=== PATIENT | female | born 1960 | race Caucasian/White ===

== ENCOUNTER 2022-12-18 21:34 | Emergency (ER) | payer BC, SELFPAY ==
[2022-12-18 21:44] VITALS: BP 128/78; PULSE 66; RESP 18; TEMP 36.2; O2SAT 97
[2022-12-18 23:20] VITALS: BP 120/68; PULSE 58; RESP 16; O2SAT 97
[2022-12-18 23:40] VITALS: O2SAT 96
--- NOTE | 2022-12-18 23:40 | CRLHL7_ITS ---
For Patients: As a result of the Cures Act, medical imaging exams and procedure reports are released immediately into your electronic medical record. You may view this report before your referring provider. If you have questions, please contact your health care provider. INDICATION: Left-sided low chest pain TECHNIQUE: Chest radiograph 1 view COMPARISON: None FINDINGS: Mediastinum: The mediastinum is normal in appearance. The heart silhouette is normal in size and morphology. Lung: Both lungs are unremarkable in appearance. Both apices are partially excluded. No sign of pleural effusion seen. No pneumothorax is identified. Bone and Soft tissue: Unremarkable for age. IMPRESSION: 1. No acute cardiopulmonary disease is seen. Dictated by: Luis Triplett MD @ 12/19/2022 00:15:08 (Electronically Signed)
[2022-12-18 23:52] LABS: Basophils Absolute Auto 0.05 K/uL (0.00-0.30); Basophils Percent Auto 0.6 % (0.0-3.0); Eosinophils Percent Auto 2.5 % (0.0-7.0); Hematocrit 41.8 % (33.0-51.0); Hemoglobin* 13.7 gm/dL (12.0-16.0); Immature Granulocytes Abs Auto 0.01 K/uL (0.00-0.30); Immature Granulocytes Pct Auto 0.1 %; Lymphocytes Absolute Auto 3.44 K/uL (0.90-2.90); Lymphocytes Percent Auto 42.6 % (20-44); Mean Corpuscular HGB Conc 33 gm/dL (32-36); Mean Corpuscular Hemoglobin 32 pg (26-34); Mean Corpuscular Volume 97 fL (80-100); Monocytes Percent Auto 7.9 % (0.0-11.0); Neutrophils Absolute Auto 3.74 K/uL (1.7-7.0); Neutrophils Percent Auto 46.3 % (42.0-72.0); Platelet Count* 279 K/uL (140-440); RDW Coefficient of Variation % 13.1 % (11.5-15.5); Red Blood Count 4.33 m/uL (4.00-5.20); White Blood Count* 8.08 K/uL (4.50-11.00)
[2022-12-18 23:53] LABS: Appearance Urine Slightly Cloudy (Clear); Bilirubin Urine Negative (Negative); Blood Urine Negative (Negative); Color Urine Yellow (Yellow); Glucose Urine Negative (Negative); Ketones Urine Negative (Negative); Leukocyte Esterase Urine Negative (Negative); Nitrite Urine Negative (Negative); Protein Urine Negative (Negative); Specific Gravity Urine 1.015 (1.000-1.030); Urobilinogen Urine 0.2 (0.2-1.0); pH Urine 8.5 (5.0-8.5)
[2022-12-19 00:07] LABS: Albumin* 3.6 g/dL (3.3-5.0)
[2022-12-19 00:08] LABS: Chloride* 110 mmol/L (96-114); Potassium* 3.3 mmol/L (3.6-5.1); Sodium* 141 mmol/L (135-149)
[2022-12-19 00:10] LABS: Alanine Aminotransferase* 13 U/L (4-35); Alkaline Phosphatase* 77 U/L (40-150); Aspartate Amino Transferase* 19 U/L (12-35); Bilirubin Direct* 0.2 mg/dL (0.0-0.5); Bilirubin Total* 0.4 mg/dL (0.1-1.5)
[2022-12-19 00:11] LABS: Creatinine* 0.6 mg/dL (0.5-1.5); Estimated Glomerular Filt Rate 100 ml/min
[2022-12-19 00:12] LABS: Blood Urea Nitrogen* 10 mg/dL (7-30); Calcium* 8.5 mg/dL (8.4-10.6); Carbon Dioxide* 31 mmol/L (20-32); Glucose* 85 mg/dL (60-115)
--- NOTE | 2022-12-19 00:12 | ED_ITS ---
HPI - General Adult General Chief complaint: Abdominal Pain Stated complaint: Stabbing pain-upper left chest/extends to left arm Time Seen by Provider: 12/18/22 23:24 History of Present Illness HPI narrative: 62-year-old woman presenting to the emergency department with significant other (?) with complaint of sudden stabbing pain about 2 hours prior to this interview in the left upper abdomen or under her breast. This occurred at rest. Worse with movement and exhaling. This pain seemed to radiate up into her ear on the left and then started to feel some discomfort down her left arm. She felt that this was unusual thinking that if it had been cardiac she would feel jaw pain. Speaking with the person who accompanies her, developed concern of potential pneumothorax. Apparently his son had spontaneous pneumothorax though in the setting of cystic fibrosis. Melanie notes long history of nonspecific bowel pains. She does have hyoscyamine available and tried that and it did not work; apparently usually effective. This pain however in location and type of pain is familiar just not this intense. She notes a history of a ?hole in my stomach? having been extensively evaluated and sees [place] [facility]. She was in usual state of health prior to this. No cough or cold symptoms. No fever. No leg pain or swelling noted. No symptoms currently and arms or legs. No focal weakness. No sense of irregular heartbeat/palpitations. She does smoke. Related Data Home Medications Medication Instructions Recorded Confirmed diphenhydramine HCl 12.5 mg/5 mL 12.5 mg PO Q4-6H PRN 12/18/22 12/18/22 prefilled spoon Previous Rx's Medication Instructions Recorded hyoscyamine sulfate 0.125 mg 0.125 mg PO Q8-12H PRN dyspepsia 12/19/22 tablet (Levsin) #90 tabs Allergies Allergy/AdvReac Type Severity Reaction Status Date / Time pseudoephedrine Allergy Intermediate Verified 10/04/22 14:00 nitrofurantoin Allergy Unknown Verified 10/04/22 14:00 [From Macrodantin] Aspirin Allergy Unknown Uncoded 10/04/22 14:00 nitrates Allergy Unknown Uncoded 10/04/22 14:00 peanut oil Allergy Unknown Uncoded 10/04/22 14:00 Shell Fish Allergy Unknown Uncoded 10/04/22 14:00 Sulfate Allergy Unknown Uncoded 10/04/22 14:00 Review of Systems Status of ROS: Reports: 10 or more systems reviewed and unremarkable except as noted in History and below [facility] Social History Smoking Status: Current every day smoker What tobacco products do you use: cigarettes Smoking packs per day: 0.5 Smoking cigarettes per day: 10.0 Do you use any of these nicotine containing products: None Second hand tobacco smoke exposure: No How often do you have a drink containing alcohol: never How often do you have six or more drinks on one occasion: Never AUDIT-C Alcohol total score: 0 Non-prescribed substance use: denies use service: No Exam Narrative: Exam Narrative: Pleasant. Energetic. Talkative Mildly anxious. Hands often palpating at the left low chest/left upper abdomen. Is speaking fluidly easily. Neck is supple without LA. There is no supraclavicular crepitus. She is sore to palpation the parascapular and scapular musculature on the left. Is well perfused with equal pulses in upper extremities. No edema in lower extremities also well perfused. Lungs appear to be clear. Heart with a regular rate and rhythm. No murmur rub or gallop identified. Abdomen is soft and nontender. Certainly no peritoneal signs. Evaluation further of the chest wall elicits mildly reproducible pain to palpation in the left low mid to lateral clavicular area rib. No rash/blisters. I did palpate deep up into the left upper quadrant under the ribs and not noticeably exacerbate pain. Const: Vital Signs, click to edit/add: Vital Signs - 24 hr 12/18/22 21:44 12/18/22 23:20 12/18/22 23:40 Temperature 97.1 F L Pulse Rate [Pulse Oximeter] 66 58 L Respiratory Rate 18 16 Blood Pressure [Le ft Upper Arm] 128/78 120/68 Pulse Oximetry 97 97 96 Oxygen Delivery Me thod Room Air Room Air Documenting provider has reviewed patient's vital signs: yes Course Vital Signs Vital signs: Initial Vital Signs Temperature 97.1 F L 12/18/22 21:44 Temperature Source Temporal Artery Scan 12/18/22 21:44 Pulse Rate 66 12/18/22 21:44 Pulse Rhythm 12/18/22 21:44 Respiratory Rate 18 12/18/22 21:44 Blood Pressure 128/78 12/18/22 21:44 Blood Pressure Mean 94 12/18/22 21:44 Pulse Oximetry 97 12/18/22 21:44 Oxygen Delivery Method 12/18/22 21:44 Vital Signs Temperature 97.1 F L 12/18/22 21:44 Pulse Rate 66 12/18/22 21:44 Respiratory Rate 18 12/18/22 21:44 Blood Pressure 128/78 12/18/22 21:44 Pulse Oximetry 97 12/18/22 21:44 Oxygen Delivery Method 12/18/22 21:44 Temperature 97.1 F L 12/18/22 21:44 Pulse Rate 58 L 12/18/22 23:20 Respiratory Rate 16 12/18/22 23:20 Blood Pressure 120/68 12/18/22 23:20 Pulse Oximetry 96 12/18/22 23:40 Oxygen Delivery Method 12/18/22 23:20 Medical Decision Making MDM Narrative Medical decision making narrative: I suppose differential could include mediastinal air or pneumothorax otherwise. Ischemic cardiovascular etiology as well as possibility. If this whole that she is describing as a hiatal hernia of sorts I suppose this could contribute. Maybe GERD. Chest wall pain as somewhat reproducible. Costochondritis, pericarditis, myocarditis also in differential. Pulmonary embolus. Soreness in left scapular area which could contribute to some left arm symptoms. Constipa tion with discomfort in splenic flexure? Monitored on monitoring engineer. Initiating laboratory evaluation. EKG as below. Chest x-ray reviewed by me looks to be unremarkable without pneumothorax no i nfiltrative process. Normal cardiac silhouette. After exam and on reassessment apparently essentially fully resolved. She thinks this was manipulated in the area and got better. Was requesting departure sensitive to friends work schedule, prior to laboratory resulting. Labs were WNL Lab Data Lab results reviewed: Yes I reviewed the patient's lab results Labs: Lab Results 12/18/22 12/18/22 12/18/22 Range/Units 23:12 23:20 23:20 WBC 8.08 (4.50-11.00) K/uL RBC 4.33 (4.00-5.20) m/uL Hgb 13.7 (12.0-16.0) gm/dL Hct 41.8 (33.0-51.0) % MCV 97 (80-100) fL MCH 32 (26-34) pg MCHC 33 (32-36) gm/dL RDW Coeff of Chloe 13.1 (11.5-15.5) % Plt Count 279 (140-440) K/uL Neut % (Auto) 46.3 (42.0-72.0) % Lymph % (Auto) 42.6 (20-44) % [place] % (Auto) 7.9 (0.0-11.0) % Eos % (Auto) 2.5 (0.0-7.0) % Baso % (Auto) 0.6 (0.0-3.0) % Neut # (Auto) 3.74 (1.7-7.0) K/uL Lymph # (Auto) 3.44 H (0.90-2.90) K/uL [place] # (Auto) 0.60 (0.00-0.90) K/UL Eos # (Auto) 0.20 (0.00-0.50) K/uL Baso # (Auto) 0.05 (0.00-0.30) K/uL D-Dimer Quant (PE/DVT) (0.00-0.50) ug/ml Sodium 141 (135-149) mmol/L Potassium 3.3 L (3.6-5.1) mmol/L Chloride 110 (96-114) mmol/L Carbon Dioxide 31 (20-32) mmol/L BUN 10 (7-30) mg/dL Creatinine 0.6 (0.5-1.5) mg/dL Estimated GFR 100 ml/min Glucose 85 (60-115) mg/dL Calcium 8.5 (8.4-10.6) mg/dL Total Bilirubin (0.1-1.5) mg/dL Direct Bilirubin (0.0-0.5) mg/dL AST (12-35) U/L ALT (4-35) U/L Alkaline Phosphatase (40-150) U/L Troponin I (0.01-0.04) ng/mL C-Reactive Protein < 0.5 L (0.5-1.0) mg/dL NT-Pro-B Natriuret Pep pg/mL Total Protein (6.0-8.3) g/dL Albumin (3.3-5.0) g/dL Urine Color Yellow (Yellow) Urine Appearance Slightly Cloudy A (Clear) Urine pH 8.5 (5.0-8.5) Ur Specific [place] 1.015 (1.000-1.030) Urine Protein Negative (Negative) Urine Glucose (UA) Negative (Negative) Urine Ketones Negative (Negative) Urine Blood Negative (Negative) Urine Nitrite Negative (Negative) Urine Bilirubin Negative (Negative) Urine Urobilinogen 0.2 (0.2-1.0) Ur Leukocyte Esterase Negative (Negative) Urine RBC 0-2 (0-2) Urine WBC 0-2 (0-5) Ur Squamous Epith Cells Few (None-Few) Amorphous Sediment Few A (None) Urine Bacteria Moderate A (None) POC Troponin I (0.01-0.04) ng/ml 12/18/22 12/18/22 12/18/22 Range/Units 23:20 23:20 23:41 WBC (4.50-11.00) K/uL RBC (4.00-5.20) m/uL Hgb (12.0-16.0) gm/dL Hct (33.0-51.0) % MCV (80-100) fL MCH (26-34) pg MCHC (32-36) gm/dL RDW Coeff of Chloe (11.5-15.5) % Plt Count (140-440) K/uL Neut % (Auto) (42.0-72.0) % Lymph % (Auto) (20-44) % [place] % (Auto) (0.0-11.0) % Eos % (Auto) (0.0-7.0) % Baso % (Auto) (0.0-3.0) % Neut # (Auto) (1.7-7.0) K/uL Lymph # (Auto) (0.90-2.90) K/uL [place] # (Auto) (0.00-0.90) K/UL Eos # (Auto) (0.00-0.50) K/uL Baso # (Auto) (0.00-0.30) K/uL D-Dimer Quant (PE/DVT) < 0.27 (0.00-0.50) ug/ml Sodium (135-149) mmol/L Potassium (3.6-5.1) mmol/L Chloride (96-114) mmol/L Carbon Dioxide (20-32) mmol/L BUN (7-30) mg/dL Creatinine (0.5-1.5) mg/dL Estimated GFR ml/min Glucose (60-115) mg/dL Calcium (8.4-10.6) mg/dL Total Bilirubin 0.4 (0.1-1.5) mg/dL Direct Bilirubin 0.2 (0.0-0.5) mg/dL AST 19 (12-35) U/L ALT 13 (4-35) U/L Alkaline Phosphatase 77 (40-150) U/L Troponin I < 0.01 L (0.01-0.04) ng/mL C-Reactive Protein (0.5-1.0) mg/dL NT-Pro-B Natriuret Pep 31 pg/mL Total Protein 6.0 (6.0-8.3) g/dL Albumin 3.6 (3.3-5.0) g/dL Urine Color (Yellow) Urine Appearance (Clear) Urine pH (5.0-8.5) Ur Specific [place] (1.000-1.030) Urine Protein (Negative) Urine Glucose (UA) (Negative) Urine Ketones (Negative) Urine Blood (Negative) Urine Nitrite (Negative) Urine Bilirubin (Negative) Urine Urobilinogen (0.2-1.0) Ur Leukocyte Esterase (Negative) Urine RBC (0-2) Urine WBC (0-5) Ur Squamous Epith Cells (None-Few) Amorphous Sediment (None) Urine Bacteria (None) POC Troponin I 0.00 L (0.01-0.04) ng/ml ECG Data Attestation: I personally reviewed and interpreted this ECG as follows: (Normal sinus rhythm at 66) Discharge Plan Discharge Clinical Impression: Chest pain Patient Disposition: Home w/ Parent or Adult Condition: Improved Instructions: Chest Pain (DC) Additional Instructions: Stay well-hydrated. We have not finished the workup here today but I understand you're feeling better and want to leave. I will call you with any concerning labs. Return for marked increase in pain, shortness of breath, new and focal weakness. Prescriptions: No Action diphenhydramine HCl 12.5 mg/5 mL prefilled spoon 12.5 mg PO Q4-6H PRN hyoscyamine sulfate [Levsin] 0.125 mg tablet 0.125 mg PO Q8-12H PRN (Reason: dyspepsia) Qty: 90 3RF Follow Up/Referrals: Maverick Hanna MD [Primary Care Provider] - Stand Alone Forms: [employer] Info Instructions
[2022-12-19 00:25] LABS: RBC Urine 0-2 (0-2); WBC Urine 0-2 (0-5)
[2022-12-19 00:26] LABS: Amorphous Sediment Urine Few; Bacteria Urine Moderate; Squamous Epithelial Cell Urine Few (None-Few)
[2022-12-19 00:26] LABS: C Reactive Protein* < 0.5 mg/dL (0.5-1.0); NT Pro B Type NatriureticPept* 31 pg/mL; Troponin I* < 0.01 ng/mL (0.01-0.04)
[2022-12-19 00:33] LABS: D Dimer Quantitative* < 0.27 ug/ml (0.00-0.50)
[2022-12-19 01:13] LABS: Slide Review Reflex No
== END 2022-12-19 00:24 | disposition home or self-care (01) ==
PROVIDERS: Emergency Provider Family Medicine; PCP Family Medicine
DX: R07.89 Other chest pain (principal)
CPT/HCPCS: 36415; 71045; 80048; 80076; 81001; 83880; 84484; 85025; 85379; 86140; 87086; 93005; 94761; 99284

== ENCOUNTER 2023-08-30 12:47 | Emergency (ER) | payer BC, SELFPAY ==
[2023-08-30 13:08] VITALS: BP 95/47; PULSE 98; RESP 16; TEMP 36.6; O2SAT 96; BMI 19.7
[2023-08-30 16:19] VITALS: BP 125/67; PULSE 84; RESP 16; TEMP 36.1; O2SAT 98
--- NOTE | 2023-08-30 16:21 | PC.NURSE ---
Pt in waiting room, states Im having issues again, it's deciding to move all over. States pain jumping all over and it doesn't like me, Pt states she is very upset with wait time, reassured VSS, reassessed. Pt anxious, many thoughts and concerns verbalized, unorganized thoughts.
--- NOTE | 2023-08-30 17:09 | PC.NURSE ---
Pt called from Triage waiting room, not here or in hospital parking lot.
== END 2023-08-30 18:18 | disposition left against medical advice (07) ==
LOC: ED 18:09
PROVIDERS: Emergency Provider Emergency Medicine; PCP Family Medicine
DX: Z53.21 Procedure and treatment not carried out due to patient leaving prior to being seen by health care provider (principal)

== ENCOUNTER 2023-09-03 14:39 | Outpatient (CLI) | payer BC, SELFPAY | END 2023-09-03 14:40 | disposition home or self-care (01) | PROVIDERS: PCP Family Medicine; Visit Provider Family Medicine | DX: R63.4 Abnormal weight loss (principal); R20.2 Paresthesia of skin | CPT/HCPCS: 80048; 84443 ==

== ENCOUNTER 2023-09-06 10:42 | Outpatient (CLI) | payer BC, SELFPAY ==
--- NOTE | 2023-09-06 11:00 | CRLHL7_ITS ---
For Patients: As a result of the Cures Act, medical imaging exams and procedure reports are released immediately into your electronic medical record. You may view this report before your referring provider. If you have questions, please contact your health care provider. CLINICAL HISTORY: PARESTHESIA OF SKIN TECHNIQUE: The carotid circulations and the vertebral arteries in the neck were examined with mattson-scale ultrasound, color-flow and Doppler spectral analysis. Degrees of stenosis were determined using SRU 2002 Consensus Panel Criteria. FINDINGS: Sonographic images demonstrate bilateral atherosclerotic plaque formation without suspicious soft tissue mass. There was antegrade blood flow demonstrated within the vertebral arteries and the subclavian arteries demonstrated a normal triphasic waveform. The spectral Doppler tracings of the common carotid, internal and external carotid arteries demonstrate no abnormal turbulence or spectral broadening. There was no significant elevation of peak systolic blood flow which would indicate a hemodynamically-significant stenosis by SRU criteria. The ICA/CCA peak systolic velocity ratio measures 0.8 on the right and 0.7 on the left. IMPRESSION: Less than 50 percent stenosis of the internal carotid arteries bilaterally. Dictated by Dimitris Aldana MD @ 09/07/2023 11:34:40 AM (Electronically Signed)
== END 2023-09-06 10:43 | disposition home or self-care (01) ==
LOC: US 10:46
PROVIDERS: PCP Family Medicine; Visit Provider Family Medicine
DX: R20.2 Paresthesia of skin (principal); I65.23 Occlusion and stenosis of bilateral carotid arteries; Z72.0 Tobacco use
CPT/HCPCS: 93880

== ENCOUNTER 2023-09-13 08:06 | Outpatient (CLI) | payer BC, SELFPAY ==
--- NOTE | 2023-09-13 08:15 | CRLHL7_ITS ---
For Patients: As a result of the Century Cures Act, medical imaging exams and procedure reports are released immediately into your electronic medical record. You may view this report before your referring provider. If you have questions, please contact your health care provider. INDICATION: Paresthesias. TECHNIQUE: Brain MRI without contrast. The following sequences were obtained: Sagittal T1 weighted sequence. DWI and ADC mapping sequences. Axial FLAIR and CHANDRIKA T2 weighted sequences. Susceptibility or GRE sequence. COMPARISON: Head CT from 01/26/2022. FINDINGS: No evidence of acute ischemia. No evidence of acute or chronic intracranial blood products. Patchy FLAIR hyperintensities within the supratentorial white matter and brainstem, typical for chronic microvascular ischemic change. Tiny chronic lacunar infarct within the left basal ganglia. Mild to moderate generalized parenchymal volume loss. No mass effect or herniation. No hydrocephalus or extra-axial collections. The pituitary gland, parasellar structures and optic chiasm are normal. A left cerebellar developmental venous anomaly. All the major intracranial vascular structures demonstrate normal flow-related signal. The orbital contents are normal. No calvarial or skull base marrow replacing process. No obstructive sinus disease. No extracranial soft tissue findings. IMPRESSION: 1. No acute infarction or other acute intracranial pathology. 2. Mild chronic microvascular ischemic changes. Tiny chronic lacunar infarction within the left anterior basal ganglia. 3. Mild to moderate generalized parenchymal volume loss. Dictated by Finesse Bloom MD @ 09/13/2023 12:52:58 PM (Electronically Signed)
== END 2023-09-13 08:07 | disposition home or self-care (01) ==
LOC: MRI 08:06
PROVIDERS: PCP Family Medicine; Visit Provider Family Medicine
DX: R20.2 Paresthesia of skin (principal); I67.82 Cerebral ischemia; R51.9 Headache, unspecified
CPT/HCPCS: 70551

== ENCOUNTER 2023-10-10 08:46 | Outpatient (CLI) | payer BC, SELFPAY | END 2023-10-10 08:47 | disposition home or self-care (01) | LOC: NFLDREF 10-11 09:08 | PROVIDERS: PCP Family Medicine; Referring Provider Family Medicine; Visit Provider Nurse Practitioner Family | DX: R82.90 Unspecified abnormal findings in urine (principal) | CPT/HCPCS: 87086 ==

== ENCOUNTER 2023-10-16 06:29 | Emergency (ER) | payer MEDICARE, BC, SELFPAY ==
[2023-10-16 06:42] VITALS: BP 107/70; PULSE 104; RESP 16; TEMP 38.1; O2SAT 97; BMI 16.6
--- NOTE | 2023-10-16 07:05 | CRLHL7_ITS ---
For Patients: As a result of the Century Cures Act, medical imaging exams and procedure reports are released immediately into your electronic medical record. You may view this report before your referring provider. If you have questions, please contact your health care provider. INDICATION: Headache. Aphasia. COMPARISON: January 26, 2022 TECHNIQUE: CT examination of the head was performed as axial sections without intravenous contrast. Images were obtained from the vertex of the skull through the skull base. Please note that all CT scans at this facility use dose modulation, iterative reconstruction, and/or weight-based dosing when appropriate to reduce radiation dose to as low as reasonably achievable. FINDINGS: The brain shows no sign of mass lesion, mass effect, hemorrhage, or edema. There are involutional changes. There is moderate cortical atrophy and there is moderate white matter disease. There is no hydrocephalus. The visualized portions of the orbits are normal in appearance. The osseous structures are normal in appearance with no sign of abnormality in the skull base or calvarium. IMPRESSION: Involutional changes. No acute-appearing findings. Please note that all CT scans at this facility use dose modulation, iterative reconstruction, and/or weight-based dosing when appropriate to reduce radiation dose to as low as reasonably achievable. Dictated by Benoit Kovacs MD @ 10/16/2023 7:45:28 AM (Electronically Signed)
--- NOTE | 2023-10-16 07:12 | ED.GENADULT ---
HPI - General Adult General Chief complaint: Headache/Migraine Stated complaint: hot/burning up/headache Time Seen by Provider: 10/16/23 06:39 History of Present Illness HPI narrative: This was a very difficult interview. 63-year-old female presents self-referred to the emergency department because of very nonspecific symptoms. She states that last night around 10:00 p.m. she went to bed. She tangentially then starts telling me about a smell of exhaust fumes in her room that caused her to have to sleep on the couch again. I am uncertain of the clinical significance of this but the side track was quite lengthy. Once I was able to redirect her, she states that she started having a hot a zinging sensation in her left adventist, I was unable to clarify how long that lasted but then she had a singing hot sensation across her mid forehead, again unable to quantify how long that lasted and then similar feeling on the right adventist. When I asked for clarification if this was painful or hot, she changes her story that she was hot throughout the body that it came on suddenly but again cannot quantify for me how long it lasted but it did somehow go away because she has another flash of it here in the ED. She does not describe it as a headache but when I asked specifically, she says that it is painful. There were several other side tangents during this description as well. She reports worse aphasia than her baseline, reports that she has had aphasia for a few years since her 2nd COVID shot. She reports hot feelings throughout her body and then subsequently tells me that she is not having any neurological changes. It sounds as though there is no new weakness, no new numbness or tingling. She tells me that she had an MRI recently but cannot recall the date nor what for. I am able to review her primary care provider notes N/C that she did have an MRI for nonspecific symptoms than as well. It did show some microvascular disease but no mass, demyelinating process or tumors. She has been placed on aspirin but does continue to smoke. She is uncertain if she has run a fever at home. She tells me that she is on antibiotics for urinary infection. I ask which antibiotic and she isn't able to quite recall. She cannot remember when it was started. When I clarify if she has been taking it, she states that she still has some antibiotics left and admits that she has missed a few doses. Denies any weakness, sepsis type symptoms. No known exposures to any illness. It sounds as though she has recently traveled to [place] though she cannot pin the dates down for me. When I attempt again to clarify if this is an old or new memory lapse, she tells me that that is ongoing. She arrives unaccompanied today so it is difficult to get a history from anyone with normal mentation. She denies any significant past medical history but it sounds as though she smokes, has a history of asthma and has had a recent extensive workup. Recent UTI. She states that her home meds are notable for what sounds like Keflex for a UTI, recent statin recent aspirin and she takes diphenhydramine for asthma attacks p.r.n.. Denies drug use. ROS is notable for the nonspecific illness sound Ng, hot and headache symptoms as described above. Related Data Home Medications Medication Instructions Recorded Confirmed Ca 600 mg-D3 20 mcg-mag oxide 50 tab PO 09/03/23 10/10/23 pd-Be-lzgkit-manganese-boron tablet (Calcium 600-D3 Plus (mag-zinc)) aspirin 81 mg tablet,delayed 81 mg PO QDAY 10/10/23 10/16/23 release (Adult Aspirin Regimen) diphenhydramine HCl 12.5 mg/5 mL 12.5 mg PO QHS 10/10/23 10/16/23 oral liquid (Benadryl Allergy) hyoscyamine sulfate 0.125 mg tablet 0.125 mg PO DAILY 10/16/23 10/16/23 Previous Rx's Medication Instructions Recorded atorvastatin 40 mg tablet 40 mg PO QHS #30 tabs 09/07/23 nirmatrelvir 300 mg (150 mg See Rx Instructions PO .COMPLEX 10/16/23 x2)-ritonavir 100 mg tablet,dose #30 ea pack (Paxlovid) Allergies Allergy/AdvReac Type Severity Reaction Status Date / Time pseudoephedrine Allergy Intermediate Verified 09/03/23 13:49 nitrofurantoin Allergy Unknown Verified 09/03/23 13:49 [From Macrodantin] aspirin Allergy Verified 10/10/23 09:30 latex Allergy Verified 10/10/23 09:30 Nitrate Analogues Allergy Verified 10/10/23 09:30 peanut Allergy Verified 12/06/23 09:30 perfume Allergy Verified 10/10/23 09:30 shellfish derived Allergy Verified 10/10/23 09:30 Sulfate Allergy Unknown Uncoded 09/03/23 13:49 nuts Allergy Uncoded 10/10/23 09:30 [facility] Surgical History S/P tonsillectomy and adenoidectomy ?Z90.89 - Acquired absence of other organs (ICD-10) S/P appendectomy ?Z90.49 - Acquired absence of other specified parts of digestive tract (ICD-10) Social History Smoking Status: Current every day smoker What tobacco products do you use: cigarettes Smoking packs per day: 0.5 Smoking cigarettes per day: 10.0 Do you use any of these nicotine containing products: None Second hand tobacco smoke exposure: No How often do you have a drink containing alcohol: never How often do you have six or more drinks on one occasion: Never AUDIT-C Alcohol total score: 0 Non-prescribed substance use: denies use service: No Exam Const: Vital Signs, click to edit/add: Vital Signs - 24 hr 10/16/23 06:42 10/16/23 08:30 10/16/23 08:35 Temperature 100.6 F H 103.1 F H Pulse Rate [Pulse Oximeter] 104 H 104 H Respiratory Rate 16 20 Blood Pressure [Ri ght Upper Arm] 107/70 83/54 L 100/62 Pulse Oximetry 97 95 Oxygen Delivery Me thod Room Air Room Air Documenting provider has reviewed patient's vital signs: yes Common normals: alert Other: Appears well nourished, well hydrated, nontoxic. Very difficult interview. Thoughts are very tangental, has some word-finding difficulties. Will go on tangents again when she has difficulty finding a word, attempts to mass with humor but it takes away from my understanding. Does not seem intoxicated or impaired. HENMT: Common normals: normocephalic Head and scalp: normocephalic Face and sinus: normal facial exam Mouth: oral and palatal mucosa normal Other: Poor dentition but no obvious sign of infection. No blood behind the TM Eye: Common normals: PERRL, EOMs intact bilaterally and conjunctivae normal General eye: normal appearance of both eyes Conjunctiva: conjunctiva(e) normal Pupil: PERRL Neck & C-Spine: Common normals: full ROM and no lymphadenopathy Resp: Common normals: normal respiratory effort and no use of accessory muscles Other: Lung sounds are slightly distant but no crackles or wheeze today Cardio: Common normals: regular rhythm, S1 normal heart sound, S2 normal heart sound and no murmurs Rhythm: regular rhythm Heart sounds: S1 normal and S2 normal GI: Common normals: Normal to inspection, nondistended, normoactive bowel sounds present, soft to palpation, non-tender, no hepatosplenomegaly and no masses Palpation: soft and no hepatosplenomegaly Extremity: Common normals: normal capillary refill Neuro: Sensorium/orientation: alert Cranial nerves: CN normal except as noted Speech: other (Does have some mild word-finding difficulty but can still express thoughts) Gait (neuro): normal gait Motor exam: strength 5/5 throughout, no tremor noted and no movement abnormalities noted Psych: Appearance: grossly normal Attitude: engaged Activity/motor behavior: appropriate eye contact Other: Mild memory impairment, insight seems fair as does judgment. Skin: Common normals: no rashes or lesions noted Narrative: No bruising, injury or signs of trauma. General skin exam: no rashes or lesions noted Course Course ED Course: 63-year-old female with no obvious signs of trauma the presents with worsening aphasia over known baseline as well as sensation of headache and hot flashes. Attempts to redirect and get more information about this headache proved to be quite difficult. I do review the previous MRI but have concerns with her smoking history and claims that the headache and aphasia are so much worse than usual that we should do a head CT to look for hemorrhage or stroke. This will be done. My impression though is that she is exhibiting signs of new acute illness like viral syndrome, COVID influenza our something similar. I recommend basic blood work, lactate, CBC, repeat of the recent urinalysis, CRP, comprehensive metabolic panel and a lipase because she is reporting nausea. Will also had an alcohol level and drug screen. Reevaluation(s) Time of Reevaluation #1: 07:57 Reevaluation #1: CT and lab findings relayed to patient. He was very difficult to get her to concentrate enough to make me feel like she adequately understood our conversation. She still showing no signs of significant neurological change or medical compromise due to severe illness. Positive for COVID. I do think that this explains her hot flash and headache symptoms. This was discussed. I recommend that she start Paxlovid. Prescription sent to pharmacy. Alarm symptoms reviewed that would warrant ED presentation. See discharge instructions. Vital Signs Vital signs: Initial Vital Signs Temperature 100.6 F H 10/16/23 06:42 Temperature Source Temporal Artery Scan 10/16/23 06:42 Pulse Rate 104 H 10/16/23 06:42 Respiratory Rate 16 10/16/23 06:42 Blood Pressure 107/70 10/16/23 06:42 Blood Pressure Mean 82 10/16/23 06:42 Blood Pressure Position Sitting 10/16/23 06:42 Pulse Oximetry 97 10/16/23 06:42 Oxygen Delivery Method Room Air 10/16/23 06:42 Vital Signs Temperature 100.6 F H 10/16/23 06:42 Pulse Rate 104 H 10/16/23 06:42 Respiratory Rate 16 10/16/23 06:42 Blood Pressure 107/70 10/16/23 06:42 Pulse Oximetry 97 10/16/23 06:42 Oxygen Delivery Method Room Air 10/16/23 06:42 Temperature 103.1 F H 10/16/23 08:30 Pulse Rate 104 H 10/16/23 08:30 Respiratory Rate 20 10/16/23 08:30 Blood Pressure 100/62 10/16/23 08:35 Pulse Oximetry 95 10/16/23 08:30 Oxygen Delivery Method Room Air 10/16/23 08:30 Medications Administered Medications: Discontinued Medications Generic Name Dose Route Start Last Admin Trade Name Johnny PRN Reason Stop Dose Admin Ibuprofen 600 mg 10/16/23 07:46 10/16/23 08:30 Ibuprofen 200 Mg Tablet PO 10/16/23 07:47 400 mg ONCE ONE Administration Ondansetron HCl 4 mg 10/16/23 07:58 10/16/23 08:00 Ondansetron Odt 4 Mg Tab PO 10/16/23 07:59 4 mg ONCE ONE Administration Medical Decision Making Lab Data Lab results reviewed: Yes I reviewed the patient's lab results Lab results narrative: Labs reassuring. COVID positive. Labs: Lab Results 12/12/23 12/12/23 12/12/23 Range/Units 06:47 07:20 07:50 WBC 6.43 (4.50-11.00) K/uL RBC 4.51 (4.00-5.20) m/uL Hgb 14.1 (12.0-16.0) gm/dL Hct 43.6 (33.0-51.0) % MCV 97 (80-100) fL MCH 31 (26-34) pg MCHC 32 (32-36) gm/dL RDW Coeff of Chloe 13.0 (11.5-15.5) % Plt Count 238 (140-440) K/uL Neut % (Auto) 85.2 H (42.0-72.0) % Lymph % (Auto) 5.3 L (20-44) % [place] % (Auto) 7.5 (0.0-11.0) % Eos % (Auto) 1.1 (0.0-7.0) % Baso % (Auto) 0.9 (0.0-3.0) % Neut # (Auto) 5.50 (1.7-7.0) K/uL Lymph # (Auto) 0.30 L (0.90-2.90) K/uL [place] # (Auto) 0.50 (0.00-0.90) K/UL Eos # (Auto) 0.07 (0.00-0.50) K/uL Baso # (Auto) 0.06 (0.00-0.30) K/uL Abs Immat Gran (auto) 0.00 (0.00-0.30) K/uL Imm/Tot Granulo (auto) 0.0 % Sodium 136 (135-149) mmol/L Potassium 4.0 (3.6-5.1) mmol/L Chloride 105 (96-114) mmol/L Carbon Dioxide 25 (20-32) mmol/L Anion Gap 6 L (7-15) mEq/L BUN 8 (7-30) mg/dL Creatinine 0.5 (0.5-1.5) mg/dL Estimated Creat Clear 38.96 Estimated GFR 104 ml/min Glucose 107 (60-115) mg/dL Lactate 0.8 (0.5-1.9) mmol/L Calcium 9.0 (8.4-10.6) mg/dL Total Bilirubin 0.6 (0.1-1.5) mg/dL AST 31 (12-35) U/L ALT 22 (4-35) U/L Alkaline Phosphatase 83 (40-150) U/L C-Reactive Protein 0.6 (0.5-1.0) mg/dL Total Protein 7.0 (6.0-8.3) g/dL Albumin 4.3 (3.3-5.0) g/dL Lipase 114 (23-300) U/L Urine Color Yellow (Yellow) Urine Appearance Clear (Clear) Urine pH 8.5 (5.0-8.5) Ur Specific [place] 1.020 (1.000-1.030) Urine Protein Negative (Negative) Urine Glucose (UA) Negative (Negative) Urine Ketones Negative (Negative) Urine Blood Trace-intact A (Negative) Urine Nitrite Negative (Negative) Urine Bilirubin Negative (Negative) Urine Urobilinogen 1.0 (0.2-1.0) Ur Leukocyte Esterase Negative (Negative) Urine RBC 2-5 A (0-2) Urine WBC 0-2 (0-5) Ur Squamous Epith Cells None (None-Few) Urine Bacteria None (None) Urine Opiates Screen Negative (Negative) Ur Oxycodone Screen Negative (Negative) Urine Methadone Screen Negative (Negative) Ur Propoxyphene Screen Not Reportable Ur Barbiturates Screen Negative (Negative) U Tricyclic Antidepress Negative (Negative) Ur Phencyclidine Scrn Negative (Negative) Ur Amphetamines Screen Negative (Negative) U Methamphetamines Scrn Negative (Negative) U Benzodiazepines Scrn Negative (Negative) Urine Cocaine Screen Negative (Negative) U Marijuana (THC) Screen Negative (Negative) Ur Drug Screen Comment See Note Ethyl Alcohol < 0.01 L (0.01-0.03) % SARS-CoV-2 (PCR) POSITIVE SARS-CoV-2 A (Negative) Influenza Type A (PCR) Negative PCR FLU A (Negative) Influenza Type B (PCR) Negative PCR FLU B (Negative) RSV (PCR) Negative PCR RSV (Negative) Imaging Data CT scan - head: Attestation: I have reviewed the pertinent imaging results. My impression: Chronic vascular changes, lots of calcifications and also volume loss. No acute findings. Radiologist's impression: IMPRESSION: Involutional changes. No acute-appearing findings. Discharge Plan Discharge Clinical Impression: COVID Patient Disposition: Home, Self-Care Condition: Stable Instructions: How to Recover from COVID-19 at Home (ED) Additional Instructions: As we discussed, your tests are positive for COVID. Thankfully the rest of your labs and your CT look stable for you. As a smoker, you do have a higher risk of complications like pneumonia but you do not currently have any signs of complications, or low oxygen etc.. I do recommend that you start an antiviral medicine called Paxlovid. I have sent a prescription to your pharmacy. Please pick it up this morning and start taking it right away. The medication has side effects of mild nausea and also a metallic taste in the mouth. I would like for you to wear a mask out in public to picker machine operator the prescription but other than that, you should quarantine for at least the next 5 days. You should expect headache, body aches, fever. If you start having severe weakness or shortness of breath, you should come back to the emergency room. Your head CT does show some chronic changes similar to the MRI but no new signs of stroke or head bleed. I do encourage you to quit smoking. You may continue to take your aspirin and other medications as prescribed. It is safe to use Tylenol 1000 mg every 6 hours and or ibuprofen 600 mg every 6 hours as needed for headache and body aches. Activity Level: Activity as Tolerated Discharge Diet: Regular Prescriptions: New Paxlovid 300 mg (150 mg x 2)-100 mg tablets,dose pack See Rx Instructions .ROUTE .COMPLEX Qty: 30 0RF Rx Instructions: take TWO 150 mg tablets of nirmatrelvir with ONE 100 mg tablet of ritonavir twice daily for 5 days No Action Ca-D3-mag mq-ijpf-ifl-randy-bor [Calcium 600-D3 Plus (mag-zinc)] 600 mg calcium- 20 mcg-50 mg tablet PO atorvastatin 40 mg tablet 40 mg PO QHS Qty: 30 5RF aspirin [Adult Aspirin Regimen] 81 mg tablet,delayed release (DR/EC) 81 mg PO QDAY Patient Comments: Per Jacques banuelos diphenhydramine HCl [Benadryl Allergy] 12.5 mg/5 mL liquid 12.5 mg PO QHS hyoscyamine sulfate 0.125 mg tablet 0.125 mg PO DAILY Follow Up/Referrals: Maverick Hanna MD [Primary Care Provider] - Stand Alone [facility]
[2023-10-16 07:26] LABS: Lactate* 0.8 mmol/L (0.5-1.9)
[2023-10-16 07:28] LABS: Basophils Absolute Auto 0.06 K/uL (0.00-0.30); Basophils Percent Auto 0.9 % (0.0-3.0); Eosinophils Absolute Auto 0.07 K/uL (0.00-0.50); Eosinophils Percent Auto 1.1 % (0.0-7.0); Hematocrit 43.6 % (33.0-51.0); Hemoglobin* 14.1 gm/dL (12.0-16.0); Lymphocytes Percent Auto 5.3 % (20-44); Mean Corpuscular HGB Conc 32 gm/dL (32-36); Mean Corpuscular Hemoglobin 31 pg (26-34); Mean Corpuscular Volume 97 fL (80-100); Monocytes Percent Auto 7.5 % (0.0-11.0); Neutrophils Percent Auto 85.2 % (42.0-72.0); Platelet Count* 238 K/uL (140-440); Red Blood Count 4.51 m/uL (4.00-5.20); White Blood Count* 6.43 K/uL (4.50-11.00)
[2023-10-16 07:34] LABS: PCR FLU A Negative PCR FLU A (Negative); PCR FLU B Negative PCR FLU B (Negative); PCR RSV Negative PCR RSV (Negative)
[2023-10-16 07:35] LABS: SARS PCR* POSITIVE SARS-CoV-2 (Negative)
[2023-10-16 07:37] LABS: Slide Review Reflex No
[2023-10-16 07:43] LABS: Albumin* 4.3 g/dL (3.3-5.0); Chloride* 105 mmol/L (96-114)
[2023-10-16 07:44] LABS: Sodium* 136 mmol/L (135-149)
--- NOTE | 2023-10-16 07:45 | ED.NURSE ---
Patient up to restroom ambulatory, instructions provided to collect UA. Patient sometimes answers instructions/questions appropriately, but other times is not finishing sentences or rambles nonsensically. Dr. Burnett consulted, notes this is baseline per PCP notes. Patient notes nausea at this time. Dr. Burnett to order zofran. Patient feels she is unable to take the ibuprofen at this time r/t nausea. She denies pain. Patient notes feeling hot but is putting on her sweater and winter coat. Patient refuses to remove layers and notes, this will help. Call light in reach. Patient provided water on request. Advised to take small sips r/t nausea she is experiencing. Will try to administer ibuprofen in 20-30 minutes when the zofran has had time to take effect. Awaiting UA results at this time. Patient denies further needs currently.
[2023-10-16 07:46] LABS: Creatinine* 0.5 mg/dL (0.5-1.5); Est. Creatinine Clearance* 38.96; Estimated Glomerular Filt Rate 104 ml/min; Ethanol* < 0.01 % (0.01-0.03)
[2023-10-16 07:47] LABS: Alanine Aminotransferase* 22 U/L (4-35); Alkaline Phosphatase* 83 U/L (40-150); Anion Gap 6 mEq/L (7-15); Aspartate Amino Transferase* 31 U/L (12-35); Bilirubin Total* 0.6 mg/dL (0.1-1.5); Blood Urea Nitrogen* 8 mg/dL (7-30); Carbon Dioxide* 25 mmol/L (20-32); Glucose* 107 mg/dL (60-115); Lipase* 114 U/L (23-300)
[2023-10-16 07:49] LABS: C Reactive Protein* 0.6 mg/dL (0.5-1.0)
[2023-10-16] MEDS: ONDANSETRON ODT 4 MG TAB PO (08:00)
[2023-10-16 08:05] LABS: Appearance Urine Clear (Clear); Bilirubin Urine Negative (Negative); Blood Urine Trace-intact (Negative); Color Urine Yellow (Yellow); Glucose Urine Negative (Negative); Ketones Urine Negative (Negative); Leukocyte Esterase Urine Negative (Negative); Nitrite Urine Negative (Negative); Protein Urine Negative (Negative); pH Urine 8.5 (5.0-8.5)
[2023-10-16 08:09] LABS: Amphetamine Screen Urine Negative (Negative); Barbiturate Screen Urine Negative (Negative); Benzodiazepines Screen Urine Negative (Negative); Cannabinoid Screen Urine Negative (Negative); Cocaine Screen Urine Negative (Negative); Methadone Screen Urine Negative (Negative); Methamphetamines Screen Urine Negative (Negative); Opiate Screen Urine Negative (Negative); Oxycodone Screen Urine Negative (Negative); Phencyclidine Screen Urine Negative (Negative); Tricyclic Antidepressant Urine Negative (Negative)
[2023-10-16 08:15] LABS: WBC Urine 0-2 (0-5)
[2023-10-16 08:30] VITALS: BP 83/54; PULSE 104; RESP 20; TEMP 39.5; O2SAT 95
[2023-10-16] MEDS: IBUPROFEN 200 MG TABLET 600 MG PO (08:30)
--- NOTE | 2023-10-16 08:31 | ED.NURSE ---
Patient agreeable to taking 400mg ibuprofen. It took resume writer 10+ minutes to get patient to take ibuprofen. Patient poured water cup in her bag, was attempting to take other medications she had in her bag, reports she doesn't usually take medications. Discussed with patient multiple times that the ibuprofen will help reduce her fever and help with the body aches she's complaining off. Patient is pacing around room, resume writer attempting to take VS. BP sitting in chair is 83 systolic. Freight Air Brake Fitter able to convice patient to sit on cot with legs up, BP 100/62. When the vital sign monitor is beeping patient comments, you can't get rid of those people over there hiding in the [place] while pointing to the vital sign monitor. Dr. Roper now caring for patient and updated on status. Freight Air Brake Fitter questions if patient is safe to discharge home as she reports living at home alone.
[2023-10-16 08:35] VITALS: BP 100/62
--- NOTE | 2023-10-16 08:45 | ED.NURSE ---
Dr. Roper speaking with patient.
--- NOTE | 2023-10-16 08:53 | ED.NURSE ---
Discharge teaching completed. Patient is repeatedly trying to walk out of the room during dc teaching. Difficult to get her to focus on instructions. Spoke with patient about use of paxlovid, using tylenl/ibupofen per explained on the DC instructions for fever and headache/pain. Stay hydrated and try to maintain diet. Discussed monitoring oxygen levels. Patient reports to technical writer and editor continuously that I'm having trouble with names and numbers and that Dr. Hanna is the one to okay all of this. Encouraged patient to pickers material handlers the paxlovid, quarantine for 5 days, and do as discussed above again. She leaves ED ambulatory, technical writer and editor having to help her zip her coat.
== END 2023-10-16 08:53 | disposition home or self-care (01) ==
PROVIDERS: Emergency Provider Family Medicine; PCP Family Medicine
DX: U07.1 COVID-19 (principal)
CPT/HCPCS: 36415; 70450; 80053; 80306; 81003; 81015; 82077; 83605; 83690; 85025; 86140; 87631; 95992; 99284; A9270

== ENCOUNTER 2023-10-18 10:36 | Emergency (ER) | payer BC, SELFPAY ==
[2023-10-18 10:48] VITALS: BP 94/65; PULSE 73; RESP 18; TEMP 36.3; O2SAT 97
--- NOTE | 2023-10-18 12:17 | ED_ITS ---
HPI - General Adult General Date Seen: 10/18/23 Chief complaint: Unspecified Complaint, Adult Stated complaint: Covid+, confusion, headache Time Seen by Provider: 10/18/23 12:03 History of Present Illness HPI narrative: This is a 63-year-old female presenting to the ER today for positive coronavirus as well as headache, confusion. She was seen in the ER [address] Burnett on the car sweeper. Part of her ER note is below: presents self-referred because of very nonspecific symptoms. She states that last night around 10:00 p.m. she went to bed. She tangentially then starts telling me about a smell of exhaust fumes in her room that caused her to have to sleep on the couch again. I am uncertain of the clinical significance of this but the side track was quite lengthy. Once I was able to redirect her, she states that she started having a hot a zinging sensation in her left yarsani, I was unable to clarify how long that lasted but then she had a singing hot sensation across her mid forehead, again unable to quantify how long that lasted and then similar feeling on the right yarsani. When I asked for clarification if this was painful or hot, she changes her story that she was hot throughout the body that it came on suddenly but again cannot quantify for me how long it lasted but it did somehow go away because she has another flash of it here in the ED. She does not describe it as a headache but when I asked specifically, s he says that it is painful. There were several other side tangents during this description as well. She reports worse aphasia than her baseline, reports that she has had aphasia for a few years since her 2nd COVID shot. She reports hot feelings throughout her body and then subsequently tells me that she is not having any neurological changes. It sounds as though there is no new weakness, no new numbness or tingling. She tells me that she had an MRI recently but cannot recall the date nor what for. I am able to review her primary care provider notes N/C that she did have an MRI for nonspecific symptoms than as well. It did show some microvascular disease but no mass, demyelinating process or tumors. She has been placed on aspirin but does continue to smoke. She is uncertain if she has run a fever at home. She tells me that she is on antibiotics for urinary infection. I ask which antibiotic and she isn't able to quite recall. She cannot remember when it was started. When I clarify if she has been taking it, she states that she still has some antibiotics left and admits that she has missed a few doses. Denies any weakness, sepsis type symptoms. No known exposures to any illness. It sounds as though she has recently traveled to [place] though she cannot pin the dates down for me. When I attempt again to clarify if this is an old or new memory lapse, she tells me that that is ongoing. She arrives unaccompanied today so it is difficult to get a history from anyone with normal mentation. She denies any significant past medical history but it sounds as though she sm okes, has a history of asthma and has had a recent extensive workup. Recent UTI. She states that her home meds are notable for what sounds like Keflex for a UTI, recent statin recent aspirin and she takes diphenhydramine for asthma attacks p.r.n.. Denies drug use. ROS is notable for the nonspecific illness sound Ng, hot and headache symptoms as described above. As we discussed, your tests are positive for COVID. Thankfully the rest of your labs and your CT look stable for you. As a smoker, you do have a higher risk of complications like pneumonia but you do not currently have any signs of complications, or low oxygen etc.. I do recommend that you start an antiviral medicine called Paxlovid. I have sent a prescription to your pharmacy. Please pick it up this morning and start taking it right away. The medication has side effects of mild nausea and also a metallic taste in the mouth. I would like for you to wear a mask out in public to warp picker the prescription but other than that, you should quarantine for at least the next 5 days. You should expect headache, body aches, fever. If you start having severe weakness or shortness of breath, you should come back to the emergency room. Your head CT does show some chronic changes similar to the MRI but no new signs of stroke or head bleed. I do encourage you to quit smoking. You may continue to take your aspirin and other medications as prescribed. It is safe to use Tylenol 1000 mg every 6 hours and or ibuprofen 600 mg every 6 hours as needed for headache and body aches. Labs showed white blood cell count 6.4, hemoglobin 14.1, platelet count 231, alcohol negative, LFTs normal, lipase negative, CRP normal at 0.6, venous lactate normal at 0.8. Head CT was negative. Sodium 136, potassium 4.0, chloride 105, bicarb 25, BUN 8, creatinine 0.5, glucose 107, calcium 9.0 She was prescribed Paxlovid. She returns to the ER today because she has an ongoing headache. She has also had ongoing poor appetite, malaise, fatigue. She is primarily concerned about her headache says she just wants some pain medication. She tried to call her clinic to get pain meds but was referred here to the ER instead. She says she does have a long history migraine headaches. She has been using her typical migraine combination of medications (Excedrin and Benadryl) but it has not been helpful for this at a. She does this headache is different than her usual migraine. No other new focal deficits. No blurry vision. She does have cough, sore throat, nasal congestion, body aches. No chest pain or shortness of breath. She says she just wants something stronger for her headache. She does have her onto can give her a ride home. She is happy because she has not had the urge to smoke cigarettes since she got sick on Sunday. Related Data Home Medications Medication Instructions Recorded Confirmed Ca 600 mg-D3 20 mcg-mag oxide 50 tab PO 09/03/23 10/10/23 mr-Cx-djpyio-manganese-boron tablet (Calcium 600-D3 Plus (mag-zinc)) aspirin 81 mg tablet,delayed 81 mg PO QDAY 10/10/23 10/16/23 release (Adult Aspirin Regimen) diphenhydramine HCl 12.5 mg/5 mL 12.5 mg PO QHS 10/10/23 10/16/23 oral liquid (Benadryl Allergy) hyoscyamine sulfate 0.125 mg tablet 0.125 mg PO DAILY 10/16/23 10/16/23 Previous Rx's Medication Instructions Recorded atorvastatin 40 mg tablet 40 mg PO QHS #30 tabs 09/07/23 nirmatrelvir 300 mg (150 mg See Rx Instructions PO .COMPLEX 10/16/23 x2)-ritonavir 100 mg tablet,dose #30 ea pack (Paxlovid) hydrocodone 5 mg-acetaminophen 325 1 tab PO Q6H PRN pain #10 tabs 10/18/23 mg tablet ondansetron 4 mg disintegrating 4 mg PO Q8H PRN nausea and 10/18/23 tablet vomiting #10 tabs Allergies Allergy/AdvReac Type Severity Reaction Status Date / Time pseudoephedrine Allergy Intermediate Verified 09/03/23 13:49 nitrofurantoin Allergy Unknown Verified 09/03/23 13:49 [From Macrodantin] aspirin Allergy Verified 10/10/23 09:30 latex Allergy Verified 10/10/23 09:30 Nitrate Analogues Allergy Verified 10/10/23 09:30 peanut Allergy Verified 10/10/23 09:30 perfume Allergy Verified 10/10/23 09:30 shellfish derived Allergy Verified 10/10/23 09:30 Sulfate Allergy Unknown Uncoded 09/03/23 13:49 nuts Allergy Uncoded 10/10/23 09:30 PFSH PFSH Surgical History S/P tonsillectomy and adenoidectomy ?Z90.89 - Acquired absence of other organs (ICD-10) S/P appendectomy ?Z90.49 - Acquired absence of other specified parts of digestive tract (ICD- 10) Social History Smoking Status: Current every day smoker What tobacco products do you use: cigarettes Smoking packs per day: 0.5 Smoking cigarettes per day: 10.0 Do you use any of these nicotine containing products: None Second hand tobacco smoke exposure: No How often do you have a drink containing alcohol: never AUDIT-C Alcohol total score: 0 Non-prescribed substance use: denies use service: No Exam Narrative: Exam Narrative: Constitutional: Appears well-developed and well-nourished. Alert. Conversant, but tangential historian. Non toxic. HENT: Head: Atraumatic. No depressed skull fracture, Raccoon Eyes, Lua's sign, or hemotympanum. Face normal. TMs normal Nose: Nose normal. Non purulent rhinorrhea bilaterally. Mouth/Throat: Oral mucosa is clear and moist. no trismus. Pharynx normal. Tonsils symmetric. No tonsillar enlargement, erythema, or exudate. Eyes: Conjunctivae normal. EOM normal. Pupils equal, round, and reactive to light. No scleral icterus. Neck: Normal range of motion. Neck supple. No tracheal deviation present. Cardiovascular: Normal rate, regular rhythm. No gallop. No friction rub. No murm ur heard. Symmetric radial artery pulses Pulmonary/Chest: Effort normal. No stridor. No respiratory distress. No wheezes. No rales. No rhonchi . No tenderness. Abdominal: Soft. Bowel sounds normal. No distension. No mass. No tenderness. No rebound. No guarding. Musculoskeletal: RUE: Normal range of motion. No tenderness. No deformity LUE: Normal range of motion. No tenderness. No deformity RLE: Normal range of motion. No edema. No tenderness. No deformity LLE: Normal range of motion. No edema. No tenderness. No deformity Neurological: Alert and oriented to person, place, and time. Normal strength. CN II-VII intact. No sensory deficit. GCS eye subscore is 4. GCS verbal subscore is 5. GCS motor subscore is 6. Normal coordination Skin: Skin is warm and dry. No rash noted. No pallor. Normal capillary refill. Psychiatric: Normal mood. Normal affect. Const: Vital Signs, click to edit/add: Vital Signs - 24 hr 10/18/23 10:48 10/18/23 12:44 Temperature 97.4 F L Pulse Rate [Pulse Oximeter] 73 65 Respiratory Rate 18 16 Blood Pressure [Ri t Upper Arm] 94/65 108/68 Pulse Oximetry 97 97 Oxygen Delivery Me thod Room Air Course Vital Signs Vital signs: Initial Vital Signs Temperature 97.4 F L 10/18/23 10:48 Temperature Source Temporal Artery Scan 10/18/23 10:48 Pulse Rate 73 10/18/23 10:48 Respiratory Rate 18 10/18/23 10:48 Blood Pressure 94/65 10/18/23 10:48 Blood Pressure Mean 74 10/18/23 10:48 Blood Pressure Position Sitting 10/18/23 10:48 Pulse Oximetry 97 10/18/23 10:48 Oxygen Delivery Method Room Air 10/18/23 10:48 Vital Signs Temperature 97.4 F L 10/18/23 10:48 Pulse Rate 73 10/18/23 10:48 Respiratory Rate 18 10/18/23 10:48 Blood Pressure 94/65 10/18/23 10:48 Pulse Oximetry 97 10/18/23 10:48 Oxygen Delivery Method Room Air 10/18/23 10:48 Temperature 97.4 F L 10/18/23 10:48 Pulse Rate 65 10/18/23 12:44 Respiratory Rate 16 10/18/23 12:44 Blood Pressure 108/68 10/18/23 12:44 Pulse Oximetry 97 10/18/23 12:44 Oxygen Delivery Method Room Air 10/18/23 10:48 Medications Administered Medications: Discontinued Medications Generic Name Dose Route Start Last Admin Trade Name Johnny PRN Reason Stop Dose Admin Hydrocodone Bitart/Acetaminophen 1 tab 10/18/23 12:43 10/18/23 12:51 Hydrocodone-Acetamin 5-325 Mg 1 Tab PO 10/18/23 12:44 1 tab ONCE ONE Administration Ondansetron HCl 4 mg 10/18/23 12:43 10/18/23 12:51 Ondansetron Odt 4 Mg Tab PO 10/18/23 12:44 4 mg ONCE ONE Administration Medical Decision Making [facility] Narrative Medical decision making narrative: This patient presents for evaluation of her headache. She has URI symptoms and is COVID positive here in the ER 2 days ago on Sunday. She is already on Paxlovid. Overall her symptoms could be consistent with coronavirus. There is no signs at this point of serious bacterial infection such as OM, RPA, epiglottitis, BOULEVARD GLASSWARE REPLACER, strep pharyngitis, pneumonia, , bacteremia, serious bacterial infection. Given clear lungs, fever curve, no hypoxia and no respiratory distress I do not feel a CXR is indicated at this point as the probability of bacterial pneumonia is very unlikely. At this point she is not hypoxic. She is already on Paxlovid to prevent severe illness. Her only concern is that she has a bad headache that she can get away with to go way with her normal fden-uzt-jbhwdhf medications. She just came here to get pain meds. Differential for headache would include coronavirus induced headache, meningitis, sinus infection, among others. No recurrent head trauma recently to necessitate repeat head CT. At this point with no stiff neck, I have low suspicion for meningitis. Would hold off on lumbar puncture for now. Patient wants some stronger pain medications for headache. She says she has done well with Vicodin in the past. We will try a short prescription for hydrocodone/acetaminophen. There are no gastrointestinal symptoms at this point and no signs of dehydration. Close followup with primary care physician is indicated. Return to ED for fever > 103, protracted vomiting, confusion, or other worsening. Discharge Plan Discharge Clinical Impression: COVID, Headache Patient Disposition: Home, Self-Care Condition: Stable Instructions: Acute Headache (ED), COVID-19 (Coronavirus Disease 2019) (ED) Additional Instructions: Please come back to the ER right away if you have any concerns especially worsening headache, uncontrolled nausea or vomiting, dehydration, worsening weakness, or if you have any other problems. Be careful with [place]-this is a pain killer that can cause drowsiness, dizziness,. It can also cause constipation. [place] can be addictive. Use it if needed but do not take any more medication than required. Use Zofran if needed if your nauseous or vomiting. Try to drink plenty of fluids. At says healthy solid foods as much as you are able to maintain nutrition and energy. Continue to avoid tobacco. You are doing a great job, not smoking since Sunday! Remember, if you get worse, come back to the ER. Prescriptions: New hydrocodone-acetaminophen 5-325 mg tablet 1 tab PO Q6H PRN (Reason: pain) Qty: 10 0RF ondansetron 4 mg tablet,disintegrating 4 mg PO Q8H PRN (Reason: nausea and vomiting) Qty: 10 0RF No Action Ca-D3-mag qc-sfqa-qww-randy-bor [Calcium 600-D3 Plus (mag-zinc)] 600 mg calcium- 20 mcg-50 mg tablet PO atorvastatin 40 mg tablet 40 mg PO QHS Qty: 30 5RF aspirin [Adult Aspirin Regimen] 81 mg tablet,delayed release (DR/EC) 81 mg PO QDAY Patient Comments: Per Jacques banuelos diphenhydramine HCl [Benadryl Allergy] 12.5 mg/5 mL liquid 12.5 mg PO QHS hyoscyamine sulfate 0.125 mg tablet 0.125 mg PO DAILY Paxlovid 300 mg (150 mg x 2)-100 mg tablets,dose pack See Rx Instructions .ROUTE .COMPLEX Qty: 30 0RF Rx Instructions: take TWO 150 mg tablets of nirmatrelvir with ONE 100 mg tablet of ritonavir twice daily for 5 days Follow Up/Referrals: Maverick Hanna MD [Primary Care Provider] - Stand Alone Forms: Gimmie Info Instructions
[2023-10-18 12:44] VITALS: BP 108/68; PULSE 65; RESP 16; O2SAT 97
[2023-10-18] MEDS: ONDANSETRON ODT 4 MG TAB PO (12:51)
[2023-10-18] MEDS: HYDROCODONE-ACETAMIN 5-325 MG 1 TAB PO (12:51)
--- NOTE | 2023-10-18 13:21 | ED.NURSE ---
Nicole, [facility], called. Patient was prescribed norco, is currently on paxlovid. Recommendation to do 1/2 dose of [place] while on paxlovid. Per Dr. Simon, patient to take 1/2 dose of [place] while on the paxlovid. Okay to still prescribe 10 tablets. Nicole verbalizes understanding, no further questions or concerns.
== END 2023-10-18 13:03 | disposition home or self-care (01) ==
PROVIDERS: Emergency Provider Emergency Medicine; PCP Family Medicine
DX: U07.1 COVID-19 (principal); R51.9 Headache, unspecified
CPT/HCPCS: 95992; 99283; A9270

== ENCOUNTER 2023-10-25 08:26 | Outpatient (CLI) | payer MEDICARE, BC, SELFPAY | END 2023-10-25 08:27 | disposition home or self-care (01) | LOC: NFLDREF 10-28 07:23 | PROVIDERS: PCP Family Medicine; Referring Provider Family Medicine; Visit Provider Physician Assistant | DX: R30.0 Dysuria (principal); R10.32 Left lower quadrant pain | CPT/HCPCS: 87086; 87186 ==

== ENCOUNTER 2024-02-21 10:59 | Outpatient (CLI) | payer MEDICARE, SELFPAY ==
--- NOTE | 2024-02-21 11:00 | CT_ITS ---
Patient: SAEED CRANE Facility:?[facility] Patient ID:?[id number] Site Patient ID:?[id number]. Site :?[id number] Study:?CT-Chest/Abd/Pelvis 49CC ISOVUE 370 AND WATER PREP-02/21/2024 2:39:58 PM Ordering Physician:?DR. ANTHONY Final Report: INDICATION: Abnormal weight loss of 15 pounds over 2 years TECHNIQUE: Volumetric helical scanning of the chest, abdomen and pelvis was performed with 49 cc of Isovue 370 contrast material IV. Coronal and sagittal reconstructions were obtained. COMPARISON: None. FINDINGS: CHEST: Emphysema is noted. No infiltrate, airway abnormality or pleural effusion is demonstrated. A scar is noted in the posterior left lower lobe base. A noncalcified lingular nodule is demonstrated on image 66 of series 3. A small calcified granuloma is noted in the right middle lobe. No axillary, mediastinal or hilar adenopathy is apparent. The heart is normal in size. ABDOMEN/PELVIS: The liver is normal in size, shape and attenuation. The bile ducts are within normal limits. No lymphadenopathy is evident. No free fluid is demonstrated. The spleen, adrenal glands and pancreas are negative. The kidneys are unremarkable. Colonic diverticulosis is noted along with a moderate to large amount of stool in the colon. A 2 cm duodenal diverticulum arising from the 3rd portion is noted. The appendix has been removed. The uterus and ovaries are negative. IMPRESSION: 1. No neoplastic or inflammatory process abdomen. 2. Emphysema. 3. Colonic diverticulosis 2 cm duodenal diverticulum. No evidence of diverticulitis. 4. Possible constipation. Please note that all CT scans at this facility use dose modulation, iterative reconstruction, and/or weight-based dosing when appropriate to reduce radiation dose to as low as reasonably achievable. Dictated by Jason Bella MD @ 02/22/2024 11:51:52 AM Signed by:?Jason Bella MD @02/22/2024 11:51:52 AM (Electronic Signature)
[2024-02-21 11:45] LABS: Creatinine* 0.6 mg/dL (0.5-1.5); Estimated Glomerular Filt Rate 100 ml/min
== END 2024-02-21 11:00 | disposition home or self-care (01) ==
LOC: CT 11:00
PROVIDERS: PCP Family Medicine; Visit Provider Family Medicine
DX: R63.4 Abnormal weight loss (principal); J43.8 Other emphysema; K57.30 Diverticulosis of large intestine without perforation or abscess without bleeding
CPT/HCPCS: 36415; 71260; 74177; 82565; Q9967

== ENCOUNTER 2025-08-13 09:51 | Outpatient (CLI) | payer OTHER, SELFPAY | END 2025-08-13 09:52 | disposition home or self-care (01) | LOC: NFLDREF 23:14 | PROVIDERS: PCP Family Medicine; Referring Provider Family Medicine; Visit Provider Family Medicine | DX: R31.9 Hematuria, unspecified (principal); N39.0 Urinary tract infection, site not specified | CPT/HCPCS: 87086 ==

== ENCOUNTER 2025-09-26 23:15 | Emergency (ER) | payer OTHER, SELFPAY ==
--- OUTSIDE RECORDS SUMMARY | 2021-02-22 22:30 | XMS_ITS | Continuity of Care Document ---
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 Role Phone No Information Unavailable Unavailable Allergies, Adverse Reactions, Alerts Substance Reaction Status Criticality adhesive tape Rash Active No Information latex Rash Active No Information erythromycin base Nausea/Vomiting Active No Info rmation famotidine GUT PAIN AND SEVERE DIARHEA Active No Information naproxen SHORT OF BREATH, ACCUTE ACID Active No Information lansoprazole SEVERE DIARHEA Active No Informatio n ranitidine DIARHEA, NAUSEA Active No Informati on Sulfa (Sulfonamide Antibiotics) Nausea/Vomiting Active No Information doxycycline face flush Active No Information NITROFURANTOIN MACROCRYSTALLINE rapid heart beat, face flush Active No Information nitrofurantoin rapid heart beat, face flush Active No Information aspirin asthma attack Active No Information Medications Medication Instructions Dosage Effective Dates (start - stop) Status Comments cephalexin 500 mg capsule take 1 Capsule by oral route 3 times every day for lesion on thigh - Active omeprazole 40 mg capsule,delayed release take 1 capsule by oral route every day before a meal - Active hyoscyamine ER 0.375 mg tablet,extended release,12 hr take 1 tablet by ORAL route 2 times every day 0.375 MG - Active Benadryl Allergy 12.5 mg/5 mL oral liquid take 10 milliliter by oral route every 4 - 6 hours as needed 25 MG - Active Mucinex Cold,Flu and Sore Throat 10 mg-20 mg-650 mg/20 mL oral liquid - Active Excedrin Extra Strength 250 mg-250 mg-65 mg tablet take 1 by Oral route once as needed 1 - Active Pepto-Bismol 262 mg/15 mL oral suspension take 15 mL by oral route every 6 hours as needed 15 mL - Active Multivitamin unknown Oral - Active Gas-X Extra Strength 125 mg capsule take 1 capsule by oral route every 4 days as needed 1 capsule - Active Procedures Procedure Date Ugi Endo; W/bx 1/mx Level Iv-surg Path Gross/micro 21 Established Level 5 Colonoscopy Flex; W/bx 1/mx Level Iv-surg Path Gross/micro 21 Advance Directives Directive Yes / No Effective Date File Name No Information Encounters Encounter Description Practice Location Reason(s) For Visit Diagnoses Date Provider Providers Copied on Encounter [facility], [address] [address], [place], [id number], [place] tel:[phone] No Information Apr-2 1 No Information [facility], [address] [address], [place], [id number], [place] tel:[phone] [facility] Left upper quadrant painGastroesopha geal reflux disease with esophagitis without hemorrhageGastri c erosion, unspecified chronicityHiatal herniaLeft upper quadrant painDiaphragmati c hernia without obstruction or gangrene Apr-1 1 Spike Blackwood. [address], [id number], [place]. tel:[phone] Referring Provider: Referral Self, USE FOR SELF REFERRALS. [facility], [address] [address], [place], [id number], [place] tel:[phone] [facility] LUQ abdominal pain Apr-0 1 Jem Hernandez. [address], [id number], [place]. tel:[phone] Established Level 5 [facility], [address] [address], [place], [id number], [place] tel:[phone] [facility] GI Symptoms or Concerns (chief complaint) LUQ abdominal pain 1 Jem Hernandez. [address] [place] [address], [id number], [place]. tel:[phone] Referring Provider: Referral Self, USE FOR SELF REFERRALS. [facility], [address] [address], [place], [id number], [place] tel:[phone] [facility] Colorectal polyp detected on colonoscopyDiver ticulosisInterna l hemorrhoidsChang e in bowel habitBenign neoplasm of appendixDvrtclos of lg int w/o perforation or abscess w/o bleedingOther hemorrhoidsDvrtc los of lg int w/o perforation or abscess w/o bleedingBenign neoplasm of appendix 1 Mack Willson. [address] [place] [address], [id number], [place]. tel:[phone] Referring Provider: Macario Hanna MD , [address] [place] [address], [address]. tel:[phone] [facility], [address] [address], [place], [id number], [place] tel:[phone] [facility] No Information 1 David Ni. [address] [place] [address], [id number], . tel:[phone] Family History Family Member Type Diagnosis Age At Onset No Information Immunizations Vaccine Date Status Comments tetanus toxoid, reduced diphtheria toxoid, and acellular pertussis vaccine, adsorbed administered Note: [facility] bi-direct ional interface ; Source: Other Registry Payers Payer name Insurance type Covered alliance party ID Authoriza tion(s) No Information Social History Type Description Quantity Date Captured Comments Sex Female Smoking Status No Information Chief Complaint And Reason For Visit No Information Reason For Referral Reason For Referral No Information Plan Of Treatment Date Type Action Status Referral Ordered: follow-up visit with Mary SALTER in 1 Month or by 03/06/2021 Appointment date/timeframe: 1 Month ordered Referral Ordered: CT Abdomen And Pelvis WITH Contrast Appointment date/timeframe: 02/04/2021 ordered Referral Ordered: EGD Appointment date/timeframe: 02/17/2021 ordered History Of Present Illness Encounter Date Complaint History Of Prese nt Illness GI Symptoms or Concerns This is a pleasant 60-year-old female who I am seeing today via a virtual visit. During the virtual visit, there were some technical issues with her computer, so part of this visit was a virtual and part of it was a televisit.She has a past medical history significant for asthma, tobacco use, and irritable bowel syndrome. She reports that she made the appointment today because she needs the episodic left upper quadrant pain that she is experiencing to end. This has been episodic since 2013, occurring 2 or 3 times a month. When it does occur, it can be bad enough that it is hard to breathe and it typically lasts several hours. Sometimes she feels like it is related to gas and baking soda or Gas-X can help it. She also reports a history of heartburn and acid reflux. At one point, she took Zantac, but then ended up having to switch to famotidine. This caused diarrhea, so she has not been able to use it. At one point, she thought about taking Prilosec, but it was too expensiv Functional Status Date Functional Assessmen t No Information Instructions Date Instruction Additional Infor sheldon Hiatal Hernia Related to Left upper quadrant pain Gastroesophageal Reflux Disease Related to Left upper quadrant pain 1. Schedule the uppe r endoscopy2. Schedule the CT3. Take omeprazole once daily4. Use the Miralax as needed5. Use the fiber supplement6. Follow up afterwards Related to LUQ abdominal pain Diverticulosis/Diverticulitis Re lated to Colorectal polyp detected on colonoscopy Colon Polyps Related to Color ectal polyp detected on colonoscopy Hemorrhoids Related to Color ectal polyp detected on colonoscopy Colon Cancer Prevention Related to Colorectal polyp detected on colonoscopy high fiber diet Related to Color ectal polyp detected on colonoscopy Assessments Type Assessment Date No Information Patient Care Teams Name Effective Dates (start - stop) Status Members No Information
--- OUTSIDE RECORDS SUMMARY | 2021-02-22 22:30 | XMS_ITS | Continuity of Care Document ---
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 Left upper quadrant painGastroesopha geal reflux disease with esophagitis without hemorrhageGastri c erosion, unspecified chronicityHiatal herniaLeft upper quadrant painDiaphragmati c hernia without obstruction or gangrene Apr-1 1 Spike Blackwood. [address], [id number], [place]. tel:[phone] Referring Provider: Referral Self, USE FOR SELF REFERRALS. [facility], [address] [address], [place], [id number], [place] tel:[phone] [facility] LUQ abdominal pain Apr-0 1 Jem Hernandez. [address], [id number], [place]. tel:[phone] Established Level 5 [facility], [address] [address], [place], [id number], [place] tel:[phone] [facility] GI Symptoms or Concerns (chief complaint) LUQ abdominal pain 1 Jem Hernandez. [address] [place] [address], [id number], [place]. tel:[phone] Referring Provider: Referral Self, USE FOR SELF REFERRALS. [facility], [address] [address], [place], [id number], [place] tel:[phone] [facility] Colorectal polyp detected on colonoscopyDiver ticulosisInterna l hemorrhoidsChang e in bowel habitBenign neoplasm of appendixDvrtclos of lg int w/o perforation or abscess w/o bleedingOther hemorrhoidsDvrtc los of lg int w/o perforation or abscess w/o bleedingBenign neoplasm of appendix 1 Mack Willson. [address] [place] [address], [id number], [place]. tel:[phone] Referring Provider: Macario Hanna MD , [address] [place] [address], [address]. tel:[phone] [facility], [address] [address], [place], [id number], [place] tel:[phone] [facility] No Information 1 David Ni. [address] [place] [address], [id number], . tel:[phone] Family History Family Member Type Diagnosis Age At Onset No Information Immunizations Vaccine Date Status Comments tetanus toxoid, reduced diphtheria toxoid, and acellular pertussis vaccine, adsorbed administered Note: [facility] bi-direct ional interface ; Source: Other Registry Payers Payer name Insurance type Covered constitution party ID Authoriza tion(s) No Information Social [...]
--- OUTSIDE RECORDS SUMMARY | 2025-09-26 23:17 | XMS_ITS | Clinical Summary ---
Author Organization [facility] Address [address] [place] [id number] Care Team Providers Care Auditor Supervisor Name Role Phone Maverick Hanna MD Primary Care Provider [phone] Allergies Active Allergy Reactions Criticality Noted Date Comments Aspirin 10/28/2007 Doxycycline Rash,Tachycardia 01/01/2010 Erythromycin GI Upset 01/01/2010 Nitrofurantoin Rash,Tachycardia 03/03/2010 Peanut GI Upset 01/07/2013 GI symptoms Pork/Porcine Containing Products Hives,Headache 03/03/2010 Shellfish Containing Products Diarrhea 2012 Medications bismuth subsalicylate (PEPTO-BISMOL) 262 mg/15 mL suspension Take 15 mL by mouth every 6 hours if needed for GI Upset. 0 2 Active albuterol, refill, (VENTOLIN) 90 mcg/actuation inhalerIndications :Unspecified asthma(493.90) Inhale 2 Puffs by mouth every 4 hours if needed for Wheezing or Other (Specify). 1 Inhaler 1 3 Active Active Problems Problem Noted Date Diagnosed Date Nicotine dependence 12/31/2012 GERD (gastroesophageal reflux disease) 0 OCD (obsessive compulsive disorder) 03/03/2010 Anxiety state, unspecified 03/03/2010 Unspecified asthma(493.90) 02/03/2010 Immunizations Immunization Administration Dates Next Due Tdap 12/31/2012 Family History Medical History Relation Name Comments Unknown Father Cancer-colon Maternal Grandmother Cancer Mother uterine or cerv ical Cancer-breast Mother Psychiatric illness Mother ETOH Relation Name Status Comments Father Maternal Grandmother Mother Social History Tobacco Use Types Packs/Day Years Used Date Smoking Tobacco: Every Day Cigarettes Smokeless Tobacco: Never Tobacco Cessation:Ready to Q uit: No Comments:less than 1/2 ppd per pt Alcohol Use Standard Drinks/Week Comments No 0 (1 standard drink = 0.6 oz pur e alcohol) Comments No Sex and Gender Information Value Date Recorded Sex Assigned at Not on file Legal Sex Female 5:26 AM OUTSIDE MEDICAL SALES REPRESENTATIVE Gender Identity Not on file Sexual Orientation Not on file Obstetrics History Last Filed Vital Signs Vital Sign Reading Time Taken Comments Blood Pressure 100/60 01/07/2013 10:02 AM OUTSIDE MEDICAL SALES REPRESENTATIVE Pulse 93 01/07/2013 10:02 AM OUTSIDE MEDICAL SALES REPRESENTATIVE Temperature 36.9 C (98.4 F) 12/11/2012 5:37 PM OUTSIDE MEDICAL SALES REPRESENTATIVE Respiratory Rate - - Oxygen Saturation 96% 01/07/2013 8:00 AM OUTSIDE MEDICAL SALES REPRESENTATIVE RA Inhaled Oxygen Concentration - - Weight 46.1 kg (101 lb 9.6 oz) 01/01/2013 8:51 A M OUTSIDE MEDICAL SALES REPRESENTATIVE Height 163.2 cm (5' 4.25) 12/31/2012 8:49 AM CS T Body Mass Index 17.3 12/31/2012 8:49 AM OUTSIDE MEDICAL SALES REPRESENTATIVE Plan of Treatment Health Maintenance Due Date Last Done Comments Depression screening for age 12+ 1970 BMI (ht and wt on same day) for age 18+ 1976 Hepatitis C screening for ag e 18-79 1976 Colonoscopy through age 75 2003 Pneumococcal series for age 50+ (1 of 1 - PCV) 2008 Zoster (shingles) series for age 50+ (1 of 2) 2008 Lipids for age 45-75 01/01/2018 01/01/2013 Tetanus booster 12/31/2022 12/31/2012 DEXA/DXA scan for age 65+ 2023 12/31/2012 Mammogram for age 45-75 09/20/2024 09/20/20 23, 01/02/2013, 12/27/2012 Influenza Vaccine (#1) 2025 RSV vaccine for adults or (1 - 1-dose 75+ series) 2033 Hepatitis B series for 19+ Aged Out N o longer eligible based on patient's age to complete this topic Procedures Procedure Name Priority Date/Time Associated Diagnosis Comments XR MAMMO BILAT SCREENING Routine 09/20/2023 8:52 AM OUTSIDE MEDICAL SALES REPRESENTATIVE Encounter for screening mammogram for malignant neoplasm of breast LIPID PANEL W REFLEX MEASURED LDL Routine 01/01/2013 7:38 AM OUTSIDE MEDICAL SALES REPRESENTATIVE Screening for lipoid disorders XR DXA BONE DENSITY 2 SITES AXIAL Routine 12/31/2012 11:03 AM OUTSIDE MEDICAL SALES REPRESENTATIVE Screening for osteoporosis from Last 3 Months or Most Recently Relevant to Health Maintenance Results * XR MAMMO BILAT SCREENING (09/20/2023 8:52 AM OUTSIDE MEDICAL SALES REPRESENTATIVE) Anatomical Region Laterality Modality BREASTS, Breast Left, Breast Right Bilateral Mammography Impressions 09/20/2023 3:31 PM OUTSIDE MEDICAL SALES REPRESENTATIVE There is no radiographic evidence for malignancy. Recommend annual mammograms. MAMMOGRAM ASSESSMENT: ACR 1 Negative PATIENTS: You will also receive a letter with your examination results in an easy to read format. If you have questions about your results, please contact your referring provider. Narrative 09/20/2023 3:31 PM OUTSIDE MEDICAL SALES REPRESENTATIVE For Patients: As a result of the Century Cures Act, medical imaging exams and procedure reports are released immediately into your electronic medical record. You may view this report before your referring provider. If you have questions, please contact your health care provider. XR MAMMO BILAT SCREENING [[id number]] CLINICAL HISTORY: This is an asymptomatic 63 y.o. patient. INDICATION FOR EXAM: Mammogram Screening. TECHNIQUE: CC & MLO views were obtained. This study was evaluated with the assistance of Computer-Aided Detection. COMPARISON FILM: Yes 01/02/13 [facility] FINDINGS: The breasts have scattered areas of fibroglandular density. There are no dominant masses, suspicious micro calcifications or areas of architectural distortion. us Paula Horta MD MAMMO Fi nal Result * LIPID PANEL W REFLEX MEASURED LDL (01/01/2013 7:38 AM OUTSIDE MEDICAL SALES REPRESENTATIVE) CHOLESTEROL,TOTAL 155 100 - 199 mg/dL 01/01/2013 9:20 AM [facility] TRIGLYCERIDES 133 <150 mg/dL 01/01/2013 9:20 AM [facility] HDL CHOLESTEROL 64 >40 mg/dL 3 9:20 AM [facility] NON-HDL CHOLESTEROL 91 <145 mg/dl 01/01/2013 9:20 AM [facility] CHOL/HDL RATIO 2.42 <4.50 01/01/2013 9:20 AM [facility] LDL CHOLESTEROL 64 <=130 mg/dL 01/01/2013 9:20 AM [facility] PATIENT STATUS FASTING 01/01/2013 9:20 AM [facility] Blood specimen (specimen) BLOOD SPECIMEN / Unknown 01/01/2013 7:38 AM OUTSIDE MEDICAL SALES REPRESENTATIVE 01/01/2013 7:38 AM OUTSIDE MEDICAL SALES REPRESENTATIVE Paula Horta MD CHEMISTRY Fi nal Result [facility] [address] [place] [address] * XR DEXA BONE DENSITY 2 SITES (12/31/2012 11:03 AM OUTSIDE MEDICAL SALES REPRESENTATIVE) Anatomical Region Laterality Modality Spine, HIPS, HIPL, HIPR Other Narrative 01/02/2013 2:14 PM [facility] Please see scanned document for results of this study. Procedure Note Juanita Mark E - 01/02/2013 Please see scanned document for results of this study. Paula Horta MD DEXA Fi nal Result from Last 3 Months or Most Recently Relevant to Health Maintenance Insurance [facility] [id number] [place] [id number] Care Teams Auditor Supervisor Relationship Specialty Start Date End Date Maverick Hanna MD PCP - General Family Practice 09/25/23
[2025-09-26 23:19] VITALS: BP 114/63; PULSE 80; RESP 16; TEMP 35.9; O2SAT 97; BMI 16.1
--- NOTE | 2025-09-27 00:09 | ED.GENADULT ---
HPI - General Adult General Chief complaint: Unspecified Complaint, Adult Stated complaint: Possible Stroke Time Seen by Provider: 09/27/25 00:09 History of Present Illness HPI narrative: Patient called nurse dayana, complaining of right arm going numb after shopping from [employer] because food is cheaper there than [place] . This was before 2200 tonight. The numbness moved several times from right arm to left arm then to feet. Pt also states she has migraines, she is trying to catch them before they get too bad. Pt took two aspirin earlier . Pt states she thinks she has a clot that is moving all over. Pt also complaining of back pain. 65 year old woman presenting to the emergency department with concern possible ?mini-stroke?. She does note history of migraines. Says this evening was feeling cramps in her legs bilaterally. And then it appeared as if they were going to sleep somewhat. While driving running errands this evening she began to feel numbness indicating from just below the bicep down to her fingers, in her right arm and then numbness in her jaw bilaterally. She was worried that maybe was developing 1 of her migraines. Subsequently intense pain in the left elbow and then this pain was present than more in the right arm at the elbow. Had some numbness possibly in the left arm as well? Feels like this is just jumping around. The numbness in the lower face and right arm apparently lasted 20 minute she thinks. Did not have any actual weakness. Does smoke cigarettes. Does believe she may have had a TIA at some point in the past. Does claim a dysarthria that seems to be what she is saying when has trouble articulating or remembering a word intermittently. She blames this on the COVID vaccine. Reviewing records shows a head CT from October of 2023 with involutional changes. Brain MRI in September of 2023 showing mild chronic microvascular ischemic changes and tiny chronic lacunar infarction in the left anterior basal ganglial. Indication for this MRI was paresthesias. I do not see CT vascular imaging other than there is a carotid Doppler study from September of 2023 - that showed less than 50% stenosis of internal carotid arteries bilaterally Related Data Home Medications ?Medication ?Instructions ?Recorded ?Confirmed aspirin 81 mg tablet,delayed 81 mg PO QDAY 10/10/23 08/13/25 release (Adult Aspirin Regimen) diphenhydramine HCl 12.5 mg/5 mL 12.5 mg PO QHS 10/10/23 08/13/25 oral liquid (Benadryl Allergy) hyoscyamine sulfate 0.125 mg tablet 0.125 mg PO DAILY 10/16/23 08/13/25 Previous Rx's ?Medication ?Instructions ?Recorded atorvastatin 40 mg tablet 40 mg PO QHS #30 tabs 09/07/23 hydrocodone 5 mg-acetaminophen 325 1 tab PO Q6H PRN pain #10 tabs 10/18/23 mg tablet mirtazapine 7.5 mg tablet 7.5 mg PO QDAY #30 tabs 02/12/24 Allergies Allergy/AdvReac Type Severity Reaction Status Date / Time pseudoephedrine Allergy Intermediate flushed Verified 08/13/25 09:43 face, racing heart aspirin Allergy Mild Verified 08/13/25 09:43 nitrofurantoin (From Allergy Mild Verified 08/13/25 09:43 Macrodantin) latex Allergy Verified 08/13/25 09:43 Nitrate Analogues Allergy Verified 08/13/25 09:43 peanut Allergy Verified 08/13/25 09:43 perfume Allergy Verified 08/13/25 09:43 shellfish derived Allergy Verified 08/13/25 09:43 Sulfate Allergy Unknown Uncoded 08/13/25 09:43 metal Allergy Uncoded 08/13/25 09:43 nuts Allergy Uncoded 08/13/25 09:43 Review of Systems Status of ROS: Reports: 6 or more systems reviewed and unremarkable except as noted in History and below [facility] Medical History COVID ?U07.1 - COVID-19 (ICD-10) Surgical History Status post tubal ligation ?Z98.51 - Tubal ligation status (ICD-10) S/P tonsillectomy and adenoidectomy ?Z90.89 - Acquired absence of other organs (ICD-10) S/P appendectomy ?Z90.49 - Acquired absence of other specified parts of digestive tract (ICD-10) Family History Other Breast cancer Social History Smoking Status: Current every day smoker What tobacco products do you use: cigarettes Smoking packs per day: 0.5 Smoking cigarettes per day: 10.0 Do you use any of these nicotine containing products: None Second hand tobacco smoke exposure: No How often do you have a drink containing alcohol: never AUDIT-C Alcohol total score: 0 Non-prescribed substance use: denies use service: No Exam Narrative: Exam Narrative: Pleasant. Very animated. Small stature, slim. Moving all extremities without difficulty. No sensory deficits apparent at this time. Cranial nerves 2-12 are intact. Lungs are clear. Heart in regular rate and rhythm. NIH stroke scale would be 0 Const: Vital Signs, click to edit/add: Vital Signs - 24 hr 09/26/25 23:19 Temperature 96.6 F L Pulse Rate [Left P ulse Oximeter] 80 Respiratory Rate 16 Blood Pressure [Ri ght Upper Arm] 114/63 Pulse Oximetry 97 Oxygen Delivery Me thod Room Air Documenting provider has reviewed patient's vital signs: yes Course Vital Signs Vital signs: Initial Vital Signs Temperature 96.6 F L 09/26/25 23:19 Temperature Source Temporal Artery Scan 09/26/25 23:19 Pulse Rate 80 09/26/25 23:19 Pulse Rhythm Regular 09/26/25 23:19 Respiratory Rate 16 09/26/25 23:19 Blood Pressure 114/63 09/26/25 23:19 Blood Pressure Mean 80 09/26/25 23:19 Blood Pressure Position Sitting 09/26/25 23:19 Pulse Oximetry 97 09/26/25 23:19 Oxygen Delivery Method Room Air 09/26/25 23:19 Vital Signs Temperature 96.6 F L 09/26/25 23:19 Pulse Rate 80 09/26/25 23:19 Respiratory Rate 16 09/26/25 23:19 Blood Pressure 114/63 09/26/25 23:19 Pulse Oximetry 97 09/26/25 23:19 Oxygen Delivery Method Room Air 09/26/25 23:19 Temperature 96.6 F L 09/26/25 23:19 Pulse Rate 80 09/26/25 23:19 Respiratory Rate 16 09/26/25 23:19 Blood Pressure 114/63 09/26/25 23:19 Pulse Oximetry 97 09/26/25 23:19 Oxygen Delivery Method Room Air 09/26/25 23:19 Medications Administered Medications: Discontinued Medications Generic Name Dose Route Start Last Admin Trade Name Johnny PRN Reason Stop Dose Admin Sodium Chloride 500 mls @ 500 mls/hr 09/27/25 00:27 09/27/25 02:15 0.9 % Sodium Chloride 500 Ml IV 09/27/25 01:26 Not Given .Q1H ONE Medical Decision Making MDM Narrative Medical decision making narrative: Makes unusual connections in her thinking. Her smoking history is certainly a concern for CVA risk. Complicated by reported migraine history. I think it's migrating nature is unlikely to be stroke related. Think it is important though that she have some further investigation. Indication: Paresthesias Technique: Noncontrast CT through the head with multiplanar reformats Comparison: CT head performed 10/16/2023 Findings: Brain: No acute hemorrhage. No acute infarct. No significant mass effect or midline shift. No gross evidence of a mass lesion or cerebral edema. Age-indeterminate suspected infarct in the left frontal raza radiata and internal capsule. Moderate chronic senescent disease. Ventricles: No acute abnormality appreciated. Orbits, sinuses, mastoids: No acute abnormality appreciated. Calvarium and soft tissues: No acute abnormality appreciated. Impression: Suspected age-indeterminate infarct in the left internal capsule and frontal raza radiata. MRI recommended for further evaluation. No acute hemorrhage or transcortical infarct appreciated. Please note that all CT scans at this facility use dose modulation, iterative reconstruction, and/or weight-based dosing when appropriate to reduce radiation dose to as low as reasonably achievable. Dictated by Jono Crawford MD @ 09/27/2025 1:27:21 AM Study:?CT-Neck Angio Angio 95CC ISOVUE 370-09/27/2025 1:26:30 AM Ordering Physician:Tressa Shanks Preliminary Report: Indication: Paresthesias Technique: CT angiogram of the head and neck following 95 mL Isovue 370 IV contrast. Multiplanar MIP images obtained. Comparison: None Findings: Preliminary report, full report to follow. Impression: CTA head: No acute abnormality appreciated. Question 2 millimeter right ICA terminus aneurysm versus infundibular origin of the PCOM. CTA neck: No acute abnormality appreciated. Dictated by Jono Crawford MD @ 09/27/2025 1:32:18 AM Suspected anomaly by my review looks to be in a different location than prior imaging. Did discuss this with Radiology. Confirming this appears to be something new when compared to imaging from 2022 including an MRI from September of 2023 where was noted lacunar infarct within the left basal ganglia. Images today do not suggest an acute process and may even be some other abnormality in the white matter. Discussed with Stroke Neuro. Hard to say what these sensory symptoms are. Related to migraine? Pending vascular imaging clarification, would follow-up in primary care to review risk factors further recommendations. Might repeat MRI; okay as outpatient Further clarified preliminary CT angio with radiologist. No significant stenosis. Final read on CTA head and neck imaging is pending Ms. Parish already takes daily aspirin or at least is supposed to. Will try to clarify this with her. No further events during time of monitoring in the emergency department. She had requested to ultimately wait for results in the lobby. See patient discharge plan for further discussion I do not know that I can explain what happened to you today. Overall your evaluation was reassuring but there do appear to be some changes that may have occurred in your brain from 2022. Not convinced that this represents a stroke but would recommend follow-up with your primary care provider to discuss your risk factors and consider further evaluation. These symptoms really could have been related to evolution of a migraine and you kept it at bay with the aspirin that you took. In the meantime, yes continue to take your daily low-dose aspirin. Medical Records Medical records reviewed: Yes I reviewed the patient's medical records Lab Data Lab results reviewed: Yes I reviewed the patient's lab results Labs: Lab Results 09/27/25 09/27/25 09/27/25 Range/Units 00:27 00:45 00:51 Sodium 135 (135-149) mmol/L Potassium 3.7 (3.6-5.1) mmol/L Chloride 102 (96-114) mmol/L Carbon Dioxide 23 (20-32) mmol/L Anion Gap 10 (7-15) mEq/L BUN 16 (7-30) mg/dL Creatinine 0.8 (0.5-1.5) mg/dL Estimated Creat Clear 37.76 Estimated GFR 81 ml/min Glucose 93 (60-115) mg/dL Calcium 8.7 (8.4-10.6) mg/dL Troponin I < 0.01 (0.01-0.04) ng/mL POC Creatinine 0.9 (0.6-1.3) mg/dl POC Troponin I 0.00 L (0.01-0.04) ng/ml ECG Data Attestation: I personally reviewed and interpreted this ECG as follows: (Normal sinus rhythm. Rate of 71.) Discharge Plan Discharge Clinical Impression: Paresthesia, Headache Patient Disposition: Home, Self-Care Condition: Improved Instructions: Acute Headache (ED) Additional Instructions: I do not know that I can explain what happened to you today. Overall your evaluation was reassuring but there do appear to be some changes that may have occurred in your brain from 2022. Not convinced that this represents a stroke but would recommend follow-up with your primary care provider to discuss your risk factors and consider further evaluation. These symptoms really could have been related to evolution of a migraine and you kept it at bay with the aspirin that you took. In the meantime, yes continue to take your daily low-dose aspirin. Activity Level: No Restrictions Discharge Diet: Regular Prescriptions: No Action atorvastatin 40 mg tablet 40 mg PO QHS Qty: 30 5RF aspirin [Adult Aspirin Regimen] 81 mg tablet,delayed release (DR/EC) 81 mg PO QDAY Patient Comments: Per Jacques banuelos diphenhydramine HCl [Benadryl Allergy] 12.5 mg/5 mL liquid 12.5 mg PO QHS mirtazapine 7.5 mg tablet 7.5 mg PO QDAY Qty: 30 5RF hydrocodone-acetaminophen 5-325 mg tablet 1 tab PO Q6H PRN (Reason: pain) Qty: 10 0RF hyoscyamine sulfate 0.125 mg tablet 0.125 mg PO DAILY Follow Up/Referrals: Maverick Hanna MD [Primary Care Provider, Family Practice] Stand Alone Forms: [facility] Info Instructions
--- NOTE | 2025-09-27 00:30 | CRLHL7_ITS ---
For Patients: As a result of the Century Cures Act, medical imaging exams and procedure reports are released immediately into your electronic medical record. You may view this report before your referring provider. If you have questions, please contact your health care provider. Indication: Paresthesias Technique: Noncontrast CT through the head with multiplanar reformats Comparison: CT head performed 10/16/2023 Findings: Brain: No acute hemorrhage. No acute infarct. No significant mass effect or midline shift. No gross evidence of a mass lesion or cerebral edema. Age-indeterminate suspected infarct in the left frontal raza radiata and internal capsule. Moderate chronic senescent disease. Ventricles: No acute abnormality appreciated. Orbits, sinuses, mastoids: No acute abnormality appreciated. Calvarium and soft tissues: No acute abnormality appreciated. Impression: Suspected age-indeterminate infarct in the left internal capsule and frontal raza radiata. MRI recommended for further evaluation. No acute hemorrhage or transcortical infarct appreciated. Please note that all CT scans at this facility use dose modulation, iterative reconstruction, and/or weight-based dosing when appropriate to reduce radiation dose to as low as reasonably achievable. Dictated by Jono Crawford MD @ 09/27/2025 1:27:21 AM (Electronically Signed)
--- NOTE | 2025-09-27 00:30 | CT_ITS ---
Patient: SAEED CRANE Facility:?[facility] Patient ID:?[id number] Site Patient ID:?[id number]. Site :?[id number] Study:?CT-Neck Angio Angio 95CC ISOVUE 370-09/27/2025 1:26:30 AM Ordering Physician:Tressa Shanks Final Report: DATE: 09/27/2025 CLINICAL HISTORY: Patient with paresthesias. TECHNIQUE: Standard helical CT image acquisition through the head and neck was performed after intravenous contrast bolus enhancement. 2D and 3D MIP images for post- processing were performed and interpreted on an independent workstation and 3D images were permanently archived. COMPARISON: CT same day. FINDINGS: The origins of the great vessels from the aortic arch are patent. The origin of the right vertebral artery is patent. The origin of the left vertebral artery is patent. The common carotid arteries are patent There is no stenosis at the origin of the right internal carotid artery. There is no stenosis at the origin of the left internal carotid artery. The rest of the cervical segments of the internal carotid arteries are patent up to their intracranial segments. The intracranial segments of the internal carotid arteries are patent. The right vertebral artery is dominant. The cervical segments of the vertebral arteries are patent. The intracranial segments of the vertebral arteries are patent. There are infundibula at the origins of the posterior communicating arteries bilaterally. The middle cerebral arteries are normal without aneurysm or proximal occlusion identified. The anterior cerebral arteries are normal without aneurysm or proximal occlusion identified. The anterior communicating artery is well visualized and appears normal. The basilar artery is normal without aneurysm or occlusion. The posterior cerebral arteries are normal without aneurysm or proximal occlusion. The visualized lung apices demonstrate emphysematous changes. The thyroid gland is unremarkable. The soft tissues of the neck are unremarkable. There are degenerative changes in the cervical spine. IMPRESSION: Patent cervical and proximal intracranial vasculature. Please note that all CT scans at this facility use dose modulation, iterative reconstruction, and/or weight-based dosing when appropriate to reduce radiation dose to as low as reasonably achievable. Dictated by Yolanda Valdez MD @ 09/27/2025 8:52:52 AM Signed by:?Yolanda Valdez MD @09/27/2025 8:52:52 AM (Electronic Signature)
--- NOTE | 2025-09-27 00:30 | CT_ITS ---
Patient: SAEED CRANE Facility:?[facility] Patient ID:?[id number] Site Patient ID:?[id number]. Site :?1960 Study:?CT-Head Angio 95CC ISOVUE 370-09/27/2025 1:21:36 AM Ordering Physician:Tressa Shanks Final Report: DATE: 09/27/2025 CLINICAL HISTORY: Patient with paresthesias. TECHNIQUE: Standard helical CT image acquisition through the head and neck was performed after intravenous contrast bolus enhancement. 2D and 3D MIP images for post- processing were performed and interpreted on an independent workstation and 3D images were permanently archived. COMPARISON: CT same day. FINDINGS: The origins of the great vessels from the aortic arch are patent. The origin of the right vertebral artery is patent. The origin of the left vertebral artery is patent. The common carotid arteries are patent There is no stenosis at the origin of the right internal carotid artery. There is no stenosis at the origin of the left internal carotid artery. The rest of the cervical segments of the internal carotid arteries are patent up to their intracranial segments. The intracranial segments of the internal carotid arteries are patent. The right vertebral artery is dominant. The cervical segments of the vertebral arteries are patent. The intracranial segments of the vertebral arteries are patent. There are infundibula at the origins of the posterior communicating arteries bilaterally. The middle cerebral arteries are normal without aneurysm or proximal occlusion identified. The anterior cerebral arteries are normal without aneurysm or proximal occlusion identified. The anterior communicating artery is well visualized and appears normal. The basilar artery is normal without aneurysm or occlusion. The posterior cerebral arteries are normal without aneurysm or proximal occlusion. The visualized lung apices demonstrate emphysematous changes. The thyroid gland is unremarkable. The soft tissues of the neck are unremarkable. There are degenerative changes in the cervical spine. IMPRESSION: Patent cervical and proximal intracranial vasculature. Please note that all CT scans at this facility use dose modulation, iterative reconstruction, and/or weight-based dosing when appropriate to reduce radiation dose to as low as reasonably achievable. Dictated by Yolanda Valdez MD @ 09/27/2025 8:51:58 AM Signed by:?Yolanda Valdez MD @09/27/2025 8:51:58 AM (Electronic Signature)
[2025-09-27 00:53] LABS: Creatinine, Point-of-Care* 0.9 mg/dl (0.6-1.3)
[2025-09-27 01:16] LABS: Troponin, Point-of-Care* 0.00 ng/ml (0.01-0.04)
--- OUTSIDE RECORDS SUMMARY | 2025-09-27 01:38 | XMS_ITS | Clinical Summary ---
Author Organization [facility] Address [address] [place] [id number] Care Team Providers Care Special Library Librarian Name Role Phone Maverick Hanna MD Primary Care Provider [phone] Allergies Active Allergy Reactions Criticality Noted Date [...] on file Legal Sex Female 5:26 AM [facility] Gender Identity Not on file Sexual Orientation Not on file Obstetrics History Last Filed Vital Signs Vital Sign Reading Time Taken Comments Blood Pressure 100/60 01/07/2013 10:02 AM [facility] Pulse 93 01/07/2013 10:02 AM [facility] Temperature 36.9 C (98.4 F) 12/11/2012 5:37 PM [facility] Respiratory Rate - - Oxygen Saturation 96% 01/07/2013 8:00 AM [facility] RA Inhaled Oxygen Concentration - - Weight 46.1 kg (101 lb 9.6 oz) 01/01/2013 8:51 A M [facility] Height 163.2 cm (5' 4.25) 12/31/2012 8:49 AM CS T Body Mass Index 17.3 12/31/2012 8:49 AM [facility] Plan of Treatment Health Maintenance Due Date [...] MAMMO BILAT SCREENING Routine 09/20/2023 8:52 AM [facility] Encounter for screening mammogram for malignant neoplasm of breast LIPID PANEL W REFLEX MEASURED LDL Routine 01/01/2013 7:38 AM [facility] Screening for lipoid disorders XR DXA BONE DENSITY 2 SITES AXIAL Routine 12/31/2012 11:03 AM [facility] Screening for osteoporosis from Last 3 Months or Most Recently Relevant to Health Maintenance Results * XR MAMMO BILAT SCREENING (09/20/2023 8:52 AM [facility]) Anatomical Region Laterality Modality BREASTS, Breast Left, Breast Right Bilateral Mammography Impressions 09/20/2023 3:31 PM [facility] There is no radiographic evidence for malignancy. Recommend annual mammograms. MAMMOGRAM ASSESSMENT: ACR 1 Negative PATIENTS: You will also receive a letter with your examination results in an easy to read format. If you have questions about your results, please contact your referring provider. Narrative 09/20/2023 3:31 PM [facility] For Patients: As a result of the Century Cures Act, medical imaging exams and procedure reports are released immediately into your electronic medical record. You may view this report before your referring provider. If you have questions, please contact your health care provider. XR MAMMO BILAT SCREENING [[id number]] CLINICAL HISTORY: This is an asymptomatic 63 [...] W REFLEX MEASURED LDL (01/01/2013 7:38 AM [facility]) CHOLESTEROL,TOTAL 155 100 - 199 mg/dL 01/01/2013 9:20 AM [facility] TRIGLYCERIDES 133 <150 mg/dL 01/01/2013 9:20 AM [facility] HDL CHOLESTEROL 64 >40 mg/dL 3 9:20 AM [facility] NON-HDL CHOLESTEROL 91 <145 mg/dl 01/01/2013 9:20 AM [facility] CHOL/HDL RATIO 2.42 <4.50 01/01/2013 9:20 AM [facility] LDL CHOLESTEROL 64 <=130 mg/dL 01/01/2013 9:20 AM [facility] PATIENT STATUS FASTING 01/01/2013 9:20 AM [facility] Blood specimen (specimen) BLOOD SPECIMEN / Unknown 01/01/2013 7:38 AM [facility] 01/01/2013 7:38 AM [facility] Paula Horta MD CHEMISTRY Fi nal Result [facility] [address] [place] [address] * XR DEXA BONE DENSITY 2 SITES (12/31/2012 11:03 AM [facility]) Anatomical Region Laterality Modality Spine, HIPS, HIPL, HIPR Other Narrative 01/02/2013 2:[address] [facility] Please see scanned document for results of this study. Procedure Note Juanita Mark E - 01/02/2013 Please see scanned document for results of this study. Paula Horta MD DEXA Fi nal Result from Last 3 Months or Most Recently Relevant to Health Maintenance Insurance [facility] [phone] [place] [address] Care Teams Special Library Librarian Relationship Specialty Start Date End Date Maverick Hanna MD PCP - General Family Practice 09/25/23
[2025-09-27 02:28] LABS: Chloride* 102 mmol/L (96-114)
[2025-09-27 02:29] LABS: Potassium* 3.7 mmol/L (3.6-5.1); Sodium* 135 mmol/L (135-149)
[2025-09-27 02:31] LABS: Blood Urea Nitrogen* 16 mg/dL (7-30); Creatinine* 0.8 mg/dL (0.5-1.5); Est. Creatinine Clearance* 37.76; Estimated Glomerular Filt Rate 81 ml/min
[2025-09-27 02:32] LABS: Anion Gap 10 mEq/L (7-15); Calcium* 8.7 mg/dL (8.4-10.6); Carbon Dioxide* 23 mmol/L (20-32); Glucose* 93 mg/dL (60-115)
== END 2025-09-27 03:22 | disposition home or self-care (01) ==
PROVIDERS: Emergency Provider Family Medicine; PCP Family Medicine
DX: R20.0 Anesthesia of skin (principal); R51.9 Headache, unspecified; F17.210 Nicotine dependence, cigarettes, uncomplicated; Z79.82 Long term (current) use of aspirin
CPT/HCPCS: 36415; 70450; 70496; 70498; 80048; 82565; 84484; 93005; 99284; 99285; Q9967

== ENCOUNTER 2025-10-10 19:21 | Emergency (ER) | payer OTHER, SELFPAY ==
--- OUTSIDE RECORDS SUMMARY | 2025-10-10 19:23 | XMS_ITS | Clinical Summary ---
Author Organization [employer] [facility] Address [address] [place] [id number] Care Team Providers Care Tax Assistant Name Role Phone Maverick Hanna MD Primary Care Provider [phone] Allergies Active Allergy Reactions Criticality Noted Date [...] on file Legal Sex Female 5:26 AM [employer] Gender Identity Not on file Sexual Orientation Not on file Last Filed Vital Signs Vital Sign Reading Time Taken Comments Blood Pressure 100/60 01/07/2013 10:02 AM [employer] Pulse 93 01/07/2013 10:02 AM [employer] Temperature 36.9 C (98.4 F) 12/11/2012 5:37 PM [employer]ER Respiratory Rate - - Oxygen Saturation 96% 01/07/2013 8:00 AM [employer] LEAD[employer] RA Inhaled Oxygen Concentration - - Weight 46.1 kg (101 lb 9.6 oz) 01/01/2013 8:51 A M [employer] Height 163.2 cm (5' 4.25) 12/31/2012 8:49 AM CS T Body Mass Index 17.3 12/31/2012 8:49 AM [employer]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 Plan of Treatment Health Maintenance Due Date [...] age 45-75 09/20/2024 09/20/20 23, 01/02/2013, 12/27/2012 COVID-19 vaccine series (1 - 2024- season) 2025 Influenza Vaccine (#1) 2025 RSV vaccine for adults or (1 - 1-dose 75+ series) 2033 Hepatitis B series for 19+ Aged Out N o longer eligible based on patient's age to complete this topic Procedures Procedure Name Priority Date/Time Associated Diagnosis Comments XR MAMMO BILAT SCREENING Routine 09/20/2023 8:52 AM [employer] Encounter for screening mammogram for malignant neoplasm of breast LIPID PANEL W REFLEX MEASURED LDL Routine 01/01/2013 7:38 AM [employer] LE[employer] Screening for lipoid disorders XR DXA BONE DENSITY 2 SITES AXIAL Routine 12/31/2012 11:03 AM [employer] Screening for osteoporosis from Last 3 Months or Most Recently Relevant to Health Maintenance Results * XR MAMMO BILAT SCREENING (09/20/2023 8:52 AM [employer]OR [employer]URE LEADER) Anatomical Region Laterality Modality BREASTS, Breast Left, Breast Right Bilateral Mammography Impressions 09/20/2023 3:31 PM [employer]ER There is no radiographic evidence for malignancy. Recommend annual mammograms. MAMMOGRAM ASSESSMENT: ACR 1 Negative PATIENTS: You will also receive a letter with your examination results in an easy to read format. If you have questions about your results, please contact your referring provider. Narrative 09/20/2023 3:31 PM [employer] LEADER For Patients: As a result of the Century Cures Act, medical imaging exams and procedure reports are released immediately into your electronic medical record. You may view this report before your referring provider. If you have questions, please contact your health care provider. XR MAMMO BILAT SCREENING [[id number]] CLINICAL HISTORY: This is an asymptomatic 63 [...] W REFLEX MEASURED LDL (01/01/2013 7:38 AM [employer]OR [employer]URE LEADER) CHOLESTEROL,TOTAL 155 100 - 199 mg/dL 01/01/2013 9:20 AM [employer] AD[employer]URE LEADER [facility] TRIGLYCERIDES 133 <150 mg/dL 01/01/2013 9:20 AM [facility] HDL CHOLESTEROL 64 >40 mg/dL 3 9:20 AM [facility] NON-HDL CHOLESTEROL 91 <145 mg/dl 01/01/2013 9:20 AM [facility] CHOL/HDL RATIO 2.42 <4.50 01/01/2013 9:20 AM [facility] LDL CHOLESTEROL 64 <=130 mg/dL 01/01/2013 9:20 AM [facility] PATIENT STATUS FASTING 01/01/2013 9:20 AM [facility] Blood specimen (specimen) BLOOD SPECIMEN / Unknown 01/01/2013 7:38 AM [employer] LEADER 01/01/2013 7:38 AM [facility] Paula Horta MD CHEMISTRY Fi nal Result [facility] [address] [place] [address] * XR DEXA BONE DENSITY 2 SITES (12/31/2012 11:03 AM [employer]URE LEADER) Anatomical Region Laterality Modality Spine, HIPS, HIPL, HIPR Other Narrative 01/02/2013 2:14 PM [facility] Please see scanned document for results of this study. Procedure Note Juanita Mark E - 01/02/2013 Please see scanned document for results of this study. Paula Horta MD DEXA Fi nal Result from Last 3 Months or Most Recently Relevant to Health Maintenance Insurance [facility] [id number] [place] [phone] Care Teams Tax Assistant Relationship Specialty Start Date End Date Maverick Hanna MD PCP - General Family Practice 09/25/23
[2025-10-10 19:59] VITALS: BP 133/85; PULSE 85; RESP 16; TEMP 37.1; O2SAT 98; BMI 16.3
--- NOTE | 2025-10-10 20:15 | ED_ITS ---
HPI - Abdominal Pain General Time Seen by Provider: 20:16 Date Seen: 10/10/25 Chief Complaint: Abdominal Pain Stated Complaint: Gastrointestinal attack Time Seen by Provider: 10/10/25 20:13 Source: patient Mode of arrival: ambulatory History of Present Illness HPI narrative: Melanie is a 65 yo female who has a past medical history migraine headaches, past surgical history tubal ligation, tonsillectomy, appendectomy who presents the emergency department for evaluation of abdominal pain. Patient reports that prior to arrival she had an episode of severe left-sided abdominal pain. Mohan nt reports 3 episodes of intermittent sharp severe pain in her left lower abdomen which she reports were spaced approximately 10-20 seconds apart. Patient reports improvement of symptoms since arrival to the ED. patient states symptoms started shortly after eating food from [facility]. Patient denies any fever, chills, chest pain, shortness of breath, nausea, vomiting, diarrhea, constipation. Patient also complains of hot urine. No medications prior to arrival. No other complaints. Related Data Home Medications ?Medication ?Instructions ?Recorded ?Confirmed aspirin 81 mg tablet,delayed 81 mg PO QDAY 10/10/23 release (Adult Aspirin Regimen) diphenhydramine HCl 12.5 mg/5 mL 12.5 mg PO QHS 08/13/25 oral liquid (Benadryl Allergy) hyoscyamine sulfate 0.125 mg tablet 0.125 mg PO DAILY 10/16/23 08/13/25 Previous Rx's ?Medication ?Instructions ?Recorded atorvastatin 40 mg tablet 40 mg PO QHS #30 tabs hydrocodone 5 mg-acetaminophen 325 1 tab PO Q6H PRN pa in #10 tabs 10/18/23 mg tablet mirtazapine 7.5 mg tablet 7.5 mg PO QDAY #30 tabs 04/0 07/29 Allergies Allergy/AdvReac Type Severity Reaction Status Date / Time pseudoephedrine Allergy Intermediate flushed Verified 08/13/25 09:43 face, racing heart aspirin Allergy Mild Verified 08/13/25 09:43 nitrofurantoin (From Allergy Mild Verified 08/13/25 09:43 Macrodantin) latex Allergy Verified 08/13/25 09:43 Nitrate Analogues Allergy Verified 08/13/25 09:43 peanut Allergy Verified 08/13/25 09:43 perfume Allergy Verified 08/13/25 09:43 shellfish derived Allergy Verified 08/13/25 09:43 Sulfate Allergy Unknown Uncoded 08/13/25 09:43 metal Allergy Uncoded 08/13/25 09:43 nuts Allergy Uncoded 08/13/25 09:43 Review of Systems Narrative Past medical history, past surgical history, medications, allergies, family history, and social history were reviewed with the patient. No additional pertinent items. A medically appropriate review of systems was performed with pertinent positives and negatives noted in HPI, all other systems negative. [facility] Medical History COVID ?U07.1 - COVID-19 (ICD-10) Surgical History Status post tubal ligation ?Z98.51 - Tubal ligation status (ICD-10) S/P tonsillectomy and adenoidectomy ?Z90.89 - Acquired absence of other organs (ICD-10) S/P appendectomy ?Z90.49 - Acquired absence of other specified parts of digestive tract (ICD- 10) Family History Other Breast cancer Social History Smoking Status: Current every day smoker What tobacco products do you use: cigarettes Smoking packs per day: 0.5 Smoking cigarettes per day: 10.0 Do you use any of these nicotine containing products: None Second hand tobacco smoke exposure: No How often do you have a drink containing alcohol: never AUDIT-C Alcohol total score: 0 Non-prescribed substance use: denies use service: No Exam Narrative: Exam Narrative: General: Afebrile, no acute distress HEENT: Normocephalic, atraumatic, conjunctiva normal. MMM Neck: non-tender, supple Cardio: regular rate. regular rhythm Resp: Normal work of breathing, no respiratory distress, lungs clear bilaterally, no wheezing, rhonchi, rales Chest/Back: no visual signs of trauma, no midline tenderness, no CVA tenderness Abdomen: soft, non distension, no tenderness, no peritoneal signs Neuro: alert and fully oriented. CN II-XII grossly intact. Grossly normal strength and sensation in all extremities. MSK: no deformities. Normal range of motion Integumentary/Skin: no rash visualized, normal color Psych: normal affect, normal behavior Const: Vital Signs, click to edit/add: Vital Signs - 24 hr 10/10/25 19:59 Temperature 98.7 F Pulse Rate [Pulse Oximeter] 85 Respiratory Rate 16 Blood Pressure [Ri ght Upper Arm] 133/85 Pulse Oximetry 98 Oxygen Delivery Me thod Room Air Course Vital Signs Vital signs: Initial Vital Signs Temperature 98.7 F 10/10/25 19:59 Temperature Source Temporal Artery Scan 10/10/25 19:59 Pulse Rate 85 10/10/25 19:59 Respiratory Rate 16 10/10/25 19:59 Blood Pressure 133/85 10/10/25 19:59 Blood Pressure Mean 101 10/10/25 19:59 Blood Pressure Position Sitting 10/10/25 19:59 Pulse Oximetry 98 10/10/25 19:59 Oxygen Delivery Method Room Air 10/10/25 19:59 Vital Signs Temperature 98.7 F 10/10/25 19:59 Pulse Rate 85 10/10/25 19:59 Respiratory Rate 16 10/10/25 19:59 Blood Pressure 133/85 10/10/25 19:59 Pulse Oximetry 98 10/10/25 19:59 Oxygen Delivery Method Room Air 10/10/25 19:59 Temperature 98.7 F 10/10/25 19:59 Pulse Rate 85 10/10/25 19:59 Respiratory Rate 16 10/10/25 19:59 Blood Pressure 133/85 10/10/25 19:59 Pulse Oximetry 98 10/10/25 19:59 Oxygen Delivery Method Room Air 10/10/25 19:59 MDM - Abdominal Pain MDM Narrative Medical decision making narrative: Melanie is a 65 yo female who has a past surgical history tubal ligation, tonsillectomy, appendectomy who presents the emergency department for evaluation of abdominal pain. Upon arrival patient is nontoxic appearing, afebrile, no distress. Abdomen is soft, nontender, nondistended with no peritoneal signs. Differential diagnosis includes but is not limited to gastritis versus gastroenteritis versus colitis versus gas versus constipation versus obstipation versus less likely obstruction versus cystitis among others. Upon arrival patient declined anything for her symptoms. Patient states that she took her prescribed 81 mg aspirin. Comprehensive labs were performed. Comprehensive labs unremarkable with no leukocytosis white blood cell count 6.8, hemoglobin 15.1, no acute metabolic electrolyte abnormality, normal lactic acid, no transaminitis, normal lipase. Urinalysis with trace amount of blood, ketones, + leukocyte esterase, wBC 5-10 +2-5 RCS, few bacteria. Patient reports urine feels hot but denies any dysuria, frequency, urgency. I discussed results with patient at this time will hold off on treat with antibiotics and will follow up culture. Patient is agreeable to plan. Patient does report improvement of symptoms, no clear etiology of patient's pain. I did consider further evaluation with CT imaging however on re-evaluation patient requesting to discharge. Encourage patient to follow up close with primary care provider in strict return precautions discussed. Patient understands and agrees the plan. Medical Records Attestation: I reviewed the patient's medical records. Lab Data Attestation: I reviewed the patient's lab results. Labs: Lab Results 10/10/25 10/10/25 Range/Units 21:04 21:22 WBC 6.88 (4.50-11.00) K/uL RBC 4.83 (4.00-5.20) m/uL Hgb 15.1 (12.0-16.0) gm/dL Hct 46.2 (33.0-51.0) % MCV 96 (80-100) fL MCH 31 (26-34) pg MCHC 33 (32-36) gm/dL RDW Coeff of Chloe 13.0 (11.5-15.5) % Plt Count 266 (140-440) K/uL Neut % (Auto) 57.4 (42.0-72.0) % Lymph % (Auto) 31.5 (20-44) % Gregory % (Auto) 8.1 (0.0-11.0) % Eos % (Auto) 2.0 (0.0-7.0) % Baso % (Auto) 0.9 (0.0-3.0) % Neut # (Auto) 3.94 (1.7-7.0) K/uL Lymph # (Auto) 2.17 (0.90-2.90) K/uL Gregory # (Auto) 0.60 (0.00-0.90) K/UL Eos # (Auto) 0.14 (0.00-0.50) K/uL Baso # (Auto) 0.06 (0.00-0.30) K/uL Abs Immat Gran (auto) 0.01 (0.00-0.30) K/uL Imm/Tot Granulo (auto) 0.1 % Sodium 141 (135-149) mmol/L Potassium 3.8 (3.6-5.1) mmol/L Chloride 104 (96-114) mmol/L Carbon Dioxide 27 (20-32) mmol/L Anion Gap 10 (7-15) mEq/L BUN 10 (7-30) mg/dL Creatinine 0.8 (0.5-1.5) mg/dL Estimated Creat Clear 38.31 Estimated GFR 81 ml/min Glucose 102 (60-115) mg/dL Lactate 1.3 (0.5-1.9) mmol/L Calcium 8.8 (8.4-10.6) mg/dL Total Bilirubin 0.8 (0.1-1.5) mg/dL AST 25 (12-35) U/L ALT 15 (4-35) U/L Alkaline Phosphatase 74 (40-150) U/L Total Protein 6.7 (6.0-8.3) g/dL Albumin 4.1 (3.3-5.0) g/dL Lipase 165 (23-300) U/L Urine Color Yellow (Yellow) Urine Appearance Clear (Clear) Urine pH 7.0 (5.0-8.5) Ur Specific [place] 1.020 (1.000-1.030) Urine Protein 1+ A (Negative) Urine Glucose (UA) Negative (Negative) Urine Ketones Trace A (Negative) Urine Blood Trace-intact A (Negative) Urine Nitrite Negative (Negative) Urine Bilirubin Negative (Negative) Urine Urobilinogen 1.0 (0.2-1.0) Ur Leukocyte Esterase 1+ A (Negative) Urine RBC 2-5 A (0-2) Urine WBC 5-10 A (0-5) Ur Squamous Epith Cells Few (None-Few) Urine Bacteria Few A (None) Discharge Plan Discharge Clinical Impression: Abdominal pain, lower Patient Disposition: Home, Self-Care Condition: Stable Additional Instructions: Please follow up with your primary care provider in the next 2-3 days for further evaluation and follow-up. Please call the scheduling appointment. Please continue your own medications. Please return to the emergency department if recurrent or worsening pain, high fever, persistent vomiting, or any worsening symptoms. It was a pleasure taking care of you today. We hope you feel better soon. Prescriptions: No Action atorvastatin 40 mg tablet 40 mg PO QHS Qty: 30 5RF aspirin [Adult Aspirin Regimen] 81 mg tablet,delayed release (DR/EC) 81 mg PO QDAY Patient Comments: Per Jacques banuelos diphenhydramine HCl [Benadryl Allergy] 12.5 mg/5 mL liquid 12.5 mg PO QHS mirtazapine 7.5 mg tablet 7.5 mg PO QDAY Qty: 30 5RF hydrocodone-acetaminophen 5-325 mg tablet 1 tab PO Q6H PRN (Reason: pain) Qty: 10 0RF hyoscyamine sulfate 0.125 mg tablet 0.125 mg PO DAILY Follow Up/Referrals: Maverick Hanna MD [Primary Care Provider, Family Practice] Stand Alone Forms: [employer] Info Instructions
[2025-10-10 21:10] LABS: Hematocrit* 46.2 % (33.0-51.0); Hemoglobin* 15.1 gm/dL (12.0-16.0); Immature Granulocytes Abs Auto 0.01 K/uL (0.00-0.30); Immature Granulocytes Pct Auto 0.1 %; Lymphocytes Absolute Auto 2.17 K/uL (0.90-2.90); Mean Corpuscular HGB Conc 33 gm/dL (32-36); Mean Corpuscular Hemoglobin 31 pg (26-34); Mean Corpuscular Volume 96 fL (80-100); RDW Coefficient of Variation % 13.0 % (11.5-15.5); Red Blood Count* 4.83 m/uL (4.00-5.20); White Blood Count* 6.88 K/uL (4.50-11.00)
[2025-10-10 21:17] LABS: Lactate* 1.3 mmol/L (0.5-1.9)
[2025-10-10 21:25] LABS: Slide Review Reflex No
[2025-10-10 21:27] LABS: Appearance Urine Clear (Clear)
[2025-10-10 21:38] LABS: Albumin* 4.1 g/dL (3.3-5.0); Chloride* 104 mmol/L (96-114)
[2025-10-10 21:39] LABS: Potassium* 3.8 mmol/L (3.6-5.1); Sodium* 141 mmol/L (135-149)
[2025-10-10 21:41] LABS: Alanine Aminotransferase* 15 U/L (4-35); Alkaline Phosphatase* 74 U/L (40-150); Anion Gap 10 mEq/L (7-15); Aspartate Amino Transferase* 25 U/L (12-35); Bilirubin Total* 0.8 mg/dL (0.1-1.5); Blood Urea Nitrogen* 10 mg/dL (7-30); Carbon Dioxide* 27 mmol/L (20-32); Creatinine* 0.8 mg/dL (0.5-1.5); Est. Creatinine Clearance* 38.31; Estimated Glomerular Filt Rate 81 ml/min; Total Protein* 6.7 g/dL (6.0-8.3)
[2025-10-10 21:42] LABS: Calcium* 8.8 mg/dL (8.4-10.6); Glucose* 102 mg/dL (60-115)
--- NOTE | 2025-10-12 09:21 | ED.GENADULT ---
HPI - General Adult General Chief complaint: Abdominal Pain Stated complaint: Gastrointestinal attack Time Seen by Provider: 10/10/25 20:13 Source: patient Mode of arrival: ambulatory History of Present Illness HPI narrative: this is an addendum to Dr. Cagle's ER note. Urine culture positive for Gram pos Cocci. UA was weakly abnormal and patient had hot urine in ER. Decision was made to await culture before initiation of antibiotics. I contacted patient by phone on 10/12/25. She is still having urinary symptoms and urinary discoloration - symptoms of UTI. Will treat with cephalexin 500mg PO BID x 5 days. pt will follow up with Dr. Gerardo, her PCP. Related Data Home Medications ?Medication ?Instructions ?Recorded ?Confirmed aspirin 81 mg tablet,delayed 81 mg PO QDAY 10/10/23 08/13/25 release (Adult Aspirin Regimen) diphenhydramine HCl 12.5 mg/5 mL 12.5 mg PO QHS 10/10/23 08/13/25 oral liquid (Benadryl Allergy) hyoscyamine sulfate 0.125 mg tablet 0.125 mg PO DAILY 10/16/23 08/13/25 Previous Rx's ?Medication ?Instructions ?Recorded atorvastatin 40 mg tablet 40 mg PO QHS #30 tabs 09/07/23 hydrocodone 5 mg-acetaminophen 325 1 tab PO Q6H PRN pain #10 tabs 10/18/23 mg tablet mirtazapine 7.5 mg tablet 7.5 mg PO QDAY #30 tabs 02/12/24 cephalexin 500 mg capsule 500 mg PO BID #10 caps 10/12/25 Allergies Allergy/AdvReac Type Severity Reaction Status Date / Time pseudoephedrine Allergy Intermediate flushed Verified 08/13/25 09:43 face, racing heart aspirin Allergy Mild Verified 08/13/25 09:43 nitrofurantoin (From Allergy Mild Verified 08/13/25 09:43 Macrodantin) latex Allergy Verified 08/13/25 09:43 Nitrate Analogues Allergy Verified 08/13/25 09:43 peanut Allergy Verified 08/13/25 09:43 perfume Allergy Verified 08/13/25 09:43 shellfish derived Allergy Verified 08/13/25 09:43 Sulfate Allergy Unknown Uncoded 08/13/25 09:43 metal Allergy Uncoded 08/13/25 09:43 nuts Allergy Uncoded 08/13/25 09:43 [facility] Medical History COVID ?U07.1 - COVID-19 (ICD-10) Surgical History Status post tubal ligation ?Z98.51 - Tubal ligation status (ICD-10) S/P tonsillectomy and adenoidectomy ?Z90.89 - Acquired absence of other organs (ICD-10) S/P appendectomy ?Z90.49 - Acquired absence of other specified parts of digestive tract (ICD-10) Family History Other Breast cancer Social History Smoking Status: Current every day smoker What tobacco products do you use: cigarettes Smoking packs per day: 0.5 Smoking cigarettes per day: 10.0 Do you use any of these nicotine containing products: None Second hand tobacco smoke exposure: No How often do you have a drink containing alcohol: never AUDIT-C Alcohol total score: 0 Non-prescribed substance use: denies use service: No Course Vital Signs Vital signs: Initial Vital Signs Temperature 98.7 F 10/10/25 19:59 Temperature Source Temporal Artery Scan 10/10/25 19:59 Pulse Rate 85 10/10/25 19:59 Respiratory Rate 16 10/10/25 19:59 Blood Pressure 133/85 10/10/25 19:59 Blood Pressure Mean 101 10/10/25 19:59 Blood Pressure Position Sitting 10/10/25 19:59 Pulse Oximetry 98 10/10/25 19:59 Oxygen Delivery Method Room Air 10/10/25 19:59 Vital Signs Temperature 98.7 F 10/10/25 19:59 Pulse Rate 85 10/10/25 19:59 Respiratory Rate 16 10/10/25 19:59 Blood Pressure 133/85 10/10/25 19:59 Pulse Oximetry 98 10/10/25 19:59 Oxygen Delivery Method Room Air 10/10/25 19:59 Temperature 98.7 F 10/10/25 19:59 Pulse Rate 85 10/10/25 19:59 Respiratory Rate 16 10/10/25 19:59 Blood Pressure 133/85 10/10/25 19:59 Pulse Oximetry 98 10/10/25 19:59 Oxygen Delivery Method Room Air 10/10/25 19:59 Medical Decision Making Lab Data Labs: Lab Results 10/10/25 10/10/25 Range/Units 21:04 21:22 WBC 6.88 (4.50-11.00) K/uL RBC 4.83 (4.00-5.20) m/uL Hgb 15.1 (12.0-16.0) gm/dL Hct 46.2 (33.0-51.0) % MCV 96 (80-100) fL MCH 31 (26-34) pg MCHC 33 (32-36) gm/dL RDW Coeff of Chloe 13.0 (11.5-15.5) % Plt Count 266 (140-440) K/uL Neut % (Auto) 57.4 (42.0-72.0) % Lymph % (Auto) 31.5 (20-44) % Branch % (Auto) 8.1 (0.0-11.0) % Eos % (Auto) 2.0 (0.0-7.0) % Baso % (Auto) 0.9 (0.0-3.0) % Neut # (Auto) 3.94 (1.7-7.0) K/uL Lymph # (Auto) 2.17 (0.90-2.90) K/uL Branch # (Auto) 0.60 (0.00-0.90) K/UL Eos # (Auto) 0.14 (0.00-0.50) K/uL Baso # (Auto) 0.06 (0.00-0.30) K/uL Abs Immat Gran (auto) 0.01 (0.00-0.30) K/uL Imm/Tot Granulo (auto) 0.1 % Sodium 141 (135-149) mmol/L Potassium 3.8 (3.6-5.1) mmol/L Chloride 104 (96-114) mmol/L Carbon Dioxide 27 (20-32) mmol/L Anion Gap 10 (7-15) mEq/L BUN 10 (7-30) mg/dL Creatinine 0.8 (0.5-1.5) mg/dL Estimated Creat Clear 38.31 Estimated GFR 81 ml/min Glucose 102 (60-115) mg/dL Lactate 1.3 (0.5-1.9) mmol/L Calcium 8.8 (8.4-10.6) mg/dL Total Bilirubin 0.8 (0.1-1.5) mg/dL AST 25 (12-35) U/L ALT 15 (4-35) U/L Alkaline Phosphatase 74 (40-150) U/L Total Protein 6.7 (6.0-8.3) g/dL Albumin 4.1 (3.3-5.0) g/dL Lipase 165 (23-300) U/L Urine Color Yellow (Yellow) Urine Appearance Clear (Clear) Urine pH 7.0 (5.0-8.5) Ur Specific [place] 1.020 (1.000-1.030) Urine Protein 1+ A (Negative) Urine Glucose (UA) Negative (Negative) Urine Ketones Trace A (Negative) Urine Blood Trace-intact A (Negative) Urine Nitrite Negative (Negative) Urine Bilirubin Negative (Negative) Urine Urobilinogen 1.0 (0.2-1.0) Ur Leukocyte Esterase 1+ A (Negative) Urine RBC 2-5 A (0-2) Urine WBC 5-10 A (0-5) Ur Squamous Epith Cells Few (None-Few) Urine Bacteria Few A (None) Discharge Plan Discharge Clinical Impression: Abdominal pain, lower, Acute UTI Patient Disposition: Home, Self-Care Condition: Stable Additional Instructions: Please follow up with your primary care provider in the next 2-3 days for further evaluation and follow-up. Please call the scheduling appointment. Please continue your own medications. Please return to the emergency department if recurrent or worsening pain, high fever, persistent vomiting, or any worsening symptoms. It was a pleasure taking care of you today. We hope you feel better soon. Prescriptions: New cephalexin 500 mg capsule 500 mg PO BID Qty: 10 0RF No Action atorvastatin 40 mg tablet 40 mg PO QHS Qty: 30 5RF aspirin [Adult Aspirin Regimen] 81 mg tablet,delayed release (DR/EC) 81 mg PO QDAY Patient Comments: Per Jacques banuelos diphenhydramine HCl [Benadryl Allergy] 12.5 mg/5 mL liquid 12.5 mg PO QHS mirtazapine 7.5 mg tablet 7.5 mg PO QDAY Qty: 30 5RF hydrocodone-acetaminophen 5-325 mg tablet 1 tab PO Q6H PRN (Reason: pain) Qty: 10 0RF hyoscyamine sulfate 0.125 mg tablet 0.125 mg PO DAILY Follow Up/Referrals: Maverick Hanna MD [Primary Care Provider, Family Practice] Stand Alone Forms: [employer] Info Instructions
== END 2025-10-10 22:56 | disposition home or self-care (01) ==
PROVIDERS: Emergency Provider Emergency Medicine; PCP Family Medicine
DX: R10.32 Left lower quadrant pain (principal); R82.998 Other abnormal findings in urine; B96.89 Other specified bacterial agents as the cause of diseases classified elsewhere
CPT/HCPCS: 36415; 80053; 81001; 83605; 83690; 85025; 87086; 87186; 99281; 99284; 99285